=== PATIENT | female | born 1995 | race Caucasian/White ===

== ENCOUNTER 2016-03-07 17:30 | Emergency (ER) | payer OTHER ==
[2016-03-07 17:48] VITALS: BMI 39.4
[2016-03-07 18:43] LABS: EOSINOPHIL 1.6 % (0-4.5); MCH 28.1 pg (25.7-33.7); MCHC 32.8 g/dl (32.0-36.0); MEAN CELL VOLUME 85.8 fl (80-96); MEAN PLT VOLUME 9.9 fl (7.5-11.1); NEUTROPHILS 73.1 % (42.8-82.8); PLATELET COUNT 216 K/MM3 (134-434); RDW 15.8 % (11.6-15.6); WHITE BLOOD COUNT 10.6 K/mm3 (4.0-10.0)
[2016-03-07 19:13] LABS: ALBUMIN 3.5 g/dl (3.4-5.0); ANION GAP 9 (8-16); BILIRUBIN,TOTAL 0.1 mg/dL (0.2-1.0); CALCIUM 8.5 mg/dL (8.5-10.1); CO2 25 mmol/L (21-32); CREATININE 0.8 mg/dL (0.55-1.02); GLUCOSE,RANDOM 90 mg/dL (74-106); SGOT/AST 18 U/L (15-37); SGPT/ALT 18 U/L (12-78); TOT PROT 7.4 g/dl (6.4-8.2)
[2016-03-07 19:16] LABS: ALK PHOS 61 U/L (45-117)
[2016-03-07 19:19] LABS: URINE APPEARANCE CLEAR; URINE BILIRUBIN NEGATIVE (NEGATIVE); URINE BLOOD NEGATIVE (NEGATIVE); URINE COLOR STRAW; URINE GLUCOSE (UA) NEGATIVE (NEGATIVE); URINE KETONE NEGATIVE (NEGATIVE); URINE LEUK ESTERASE NEGATIVE (NEGATIVE); URINE NITRITE NEGATIVE (NEGATIVE); URINE PROTEIN NEGATIVE (NEGATIVE); URINE UROBILINOGEN NEGATIVE E.U./dl (0.2-1.0)
--- NOTE | 2016-03-07 19:30 | PDOC ---
History of Present Illness - General History Source: Patient Exam Limitations: No Limitations - History of Present Illness Travel History: No Timing/Duration: reports: intermittent Abdominal Pain Onset Location: reports: suprapubic (right) <Tania Humphrey - Last Filed: 03/07/16 22:22> <Kelly Kelley - Last Filed: 04/28/16 09:02> - General Chief Complaint: Pain Stated Complaint: PELVIC PAIN Time Seen by Provider: 03/07/16 18:33 Past History - Past Medical History Asthma: No Cancer: No Cardiac Disorders: No Diabetes: No HTN: Yes ( induced hypertension) Seizures: No Thyroid Disease: No - Surgical History Abdominal Surgery: Yes - Reproductive History Is Patient Now?: Yes (#): 3 Para: 1 Therapeutic (s) & number: No Spontaneous : 1 - Immunization History Immunization Up to Date: Yes - Psycho/Social/Smoking Cessation Hx Anxiety: No Suicidal Ideation: No Smoking Status: No Smoking History: Never smoked Have you smoked in the past 12 months: No Number of Cigarettes Smoked Daily: 0 Hx Alcohol Use: No Drug/Substance Use Hx: No Substance Use Type: None Hx Substance Use Treatment: No <Tania Humphrey - Last Filed: 03/07/16 22:22> <Kelly Kelley - Last Filed: 04/28/16 09:02> - Past Medical History Allergies/Adverse Reactions: Allergies Allergy/AdvReac Type Severity Reaction Status Date / Time No Known Allergies Allergy Verified 03/07/16 17:45 Home Medications: Ambulatory Orders Lactobacillus Acidophilus [Probiotic] 1 each PO DAILY 04/14/16 Ondansetron HCl [Zofran] 4 mg PO TID PRN #12 tablet 04/14/16 Vit/Iron Fumarate/FA [ Tablet] 1 each PO DAILY 04/14/16 *Physical Exam - Vital Signs Last Vital Signs Temp Pulse Resp BP Pulse Ox 98.4 F 87 18 129/66 100 03/07/16 17:44 03/07/16 17:44 03/07/16 17:44 03/07/16 17:44 03/07/16 17:44 <Tania Humphrey - Last Filed: 03/07/16 22:22> - Vital Signs Last Vital Signs Temp Pulse Resp BP Pulse Ox 98.1 F 74 18 125/63 100 03/07/16 21:05 03/07/16 21:05 03/07/16 21:05 03/07/16 21:05 03/07/16 21:05 <Kelly Kelley - Last Filed: 04/28/16 09:02> ED Treatment Course - LABORATORY CBC & Chemistry Diagram: 03/07/16 18:38 03/07/16 18:38 - ADDITIONAL ORDERS Additional order review: Laboratory Results 03/07/16 03/07/16 19:00 18:38 Sodium 139 Potassium 3.9 Chloride 105 Carbon Dioxide 25 Anion Gap 9 BUN 13 D Creatinine 0.8 Creat Clearance w eGFR > 60 Random Glucose 90 Calcium 8.5 Total Bilirubin 0.1 L D AST 18 D ALT 18 D Alkaline Phosphatase 61 D Total Protein 7.4 Albumin 3.5 D Beta HCG, Quant 540.5 Urine Color Straw Urine Appearance Clear Urine pH 6.0 Ur Specific [place] 1.012 Urine Protein Negative Urine Glucose (UA) Negative Urine Ketones Negative Urine Blood Negative Urine Nitrite Negative Urine Bilirubin Negative Urine Urobilinogen Negative Ur Leukocyte Esterase Negative 03/07/16 18:38 RBC 4.30 MCV 85.8 MCHC 32.8 RDW 15.8 H MPV 9.9 Neutrophils % 73.1 Lymphocytes % 17.0 D Monocytes % 6.3 Eosinophils % 1.6 Basophils % 2.0 - RADIOLOGY Radiograph Interpretation: 03/07/16 22:11 Patient Name: Kanchan Melissa THIS IS A PRELIMINARY REPORT FROM [facility] HELPER EXAM: Ultrasound pelvis transabdominal and transvaginal with duplex IMAGES: 46 EXAM DATE AND TIME: 2016-03-07 19:41:19.0 REASON FOR EXAM: with left suprapubic pain. Rule out torsion. Beta hCG 540.5 COMPARISON: None. FINDINGS: The uterus is normal in size and echogenicity There are 2 possible early intrauterine gestational sacs with no poles or yolk sac is visualized. Approximate age of 5 weeks and 4 weeks, 5 days by mean sac diameters of 0.44 and 0.21 cm respectively Correlation with serial beta-hCG and followup ultrasound suggested There is a small cyst in the right ovary measuring 1.9 cm, possibly a corpus luteum cyst Normal appearance of the left ovary containing a few small follicles. Flow is demonstrated to both ovaries on Doppler evaluation No adnexal masses visualized No free fluid THIS DOCUMENT HAS BEEN ELECTRONICALLY SIGNED Osei Dejesus MD 03/07/2016 21:34 EST <KamTania - Last Filed: 03/07/16 22:22> - LABORATORY CBC & Chemistry Diagram: 03/07/16 18:38 03/07/16 18:38 - ADDITIONAL ORDERS Additional order review: 03/07/16 18:38 RBC 4.30 MCV 85.8 MCHC 32.8 RDW 15.8 H MPV 9.9 Neutrophils % 73.1 Lymphocytes % 17.0 D Monocytes % 6.3 Eosinophils % 1.6 Basophils % 2.0 <Kelly Kelley - Last Filed: 04/28/16 09:02> *DC/Admit/Observation/Transfer - Discharge Dispostion Admit: No <Tania Humphrey - Last Filed: 03/07/16 22:22> - Attestations Physician Attestion: I reviewed the case with the mid-level practitioner and agree with the mid- level practitioner's assessment, diagnosis and disposition. <Kelly Kelley - Last Filed: 04/28/16 09:02> Diagnosis at time of Disposition: Pelvic pain, Threatened - Discharge Dispostion Disposition: HOME - Referrals Referrals: Tamika Lehman MD [Staff Physician] - - Patient Instructions Printed Discharge Instructions: DI for Threatened , DI for Pelvic Pain Additional Instructions: Must follow up with your Process Improvement Engineer or the one listed on your discharge Increase fluids Pelvic rest Return to the ER for severe/persistent/worsening symptoms, fever/vaginal bleed
[2016-03-07 21:06] VITALS: BP 125/63; PULSE 74; TEMP 98.1
== END 2016-03-07 22:46 | disposition home or self-care (01) ==
LOC: JER 17:30
DX: O20.0 Threatened abortion (principal); O34.81 Maternal care for other abnormalities of pelvic organs, first trimester; N83.291 Other ovarian cyst, right side; Z3A.01 Less than 8 weeks gestation of pregnancy
CPT/HCPCS: 36415; 76817-TC; 80053; 81003; 84702; 85025; 86850; 86900; 86901; 99282-25

== ENCOUNTER 2016-04-14 11:13 | Emergency (ER) | payer OTHER ==
[2016-04-14 11:24] VITALS: BMI 42.7
[2016-04-14] MEDS ORDERED: ONDANSETRON 4 MG/2 ML VIAL IVPUSH ONE (12:13)
[2016-04-14] MEDS ORDERED: SODIUM CHLORIDE 1,000 ML IV STA (12:13)
[2016-04-14] MEDS ORDERED: ONDANSETRON 4 MG/2 ML VIAL ONE (12:25)
--- NOTE | 2016-04-14 12:31 | PDOC ---
History of Present Illness - General Chief Complaint: Nausea/Vomiting Stated Complaint: NAUSEA, DIZZINESS, 8 WKS Time Seen by Provider: 04/14/16 11:33 History Source: Patient Exam Limitations: No Limitations - History of Present Illness Travel History: No Initial Comments: 04/14/16 12:04 20-year-old female presents to the ED with complaints of nausea and vomiting since yesterday associated with generalized fatigue and inability to tolerate by mouth. Patient states had symptoms earlier in the but states did return again on Wednesday. Patient states is currently 8 Weeks with twins as confirmed with ultrasound. Patient denies urinary complaints, bowel complaints, fever, chills, chest pain, abdominal pain, or back pain. Patient also denies vaginal discharge or vaginal bleeding. Timing/Duration: reports: intermittent Quality: reports: moderate Activities at Onset: reports: none Aggravating Factors: improves with: None Alleviating Factors: improves with: None Past History - Past Medical History Allergies/Adverse Reactions: Allergies Allergy/AdvReac Type Severity Reaction Status Date / Time No Known Allergies Allergy Verified 04/14/16 11:20 Home Medications: Ambulatory Orders Lactobacillus Acidophilus [Probiotic] 1 each PO DAILY 04/14/16 Vit/Iron Fumarate/FA [ Tablet] 1 each PO DAILY 04/14/16 Asthma: No Cancer: No Cardiac Disorders: No Diabetes: No HTN: Yes ( induced hypertension) Seizures: No Thyroid Disease: No - Surgical History Abdominal Surgery: Yes - Reproductive History (#): 3 Para: 1 Therapeutic (s) & number: No Spontaneous : 1 - Immunization History Immunization Up to Date: Yes - Psycho/Social/Smoking Cessation Hx Anxiety: No Suicidal Ideation: No Smoking Status: No Smoking History: Never smoked Have you smoked in the past 12 months: No Number of Cigarettes Smoked Daily: 0 Hx Alcohol Use: No Drug/Substance Use Hx: No Substance Use Type: None Hx Substance Use Treatment: No Patient Lives Alone: No Lives with/in: spouse/SO Review of Systems - Review of Systems Able to Perform ROS?: Yes Constitutional: Yes: Symptoms Reported, Weakness HEENTM: No: Symptoms Reported Respiratory: No: Symptoms reported Cardiac (ROS): No: Symptoms Reported ABD/GI: Yes: Nausea, Poor Appetite, Poor Fluid Intake, Vomiting : No: Symptoms Reported Musculoskeletal: No: Symptoms Reported Integumentary: No: Symptoms Reported Neurological: Yes: Weakness (mild generalized) Endocrine: No: Symptoms Reported Hematologic/Lymphatic: No: Symptoms Reported *Physical Exam - Vital Signs Last Vital Signs Temp Pulse Resp BP Pulse Ox 98 F 98 H 17 133/79 98 04/14/16 11:20 04/14/16 11:20 04/14/16 11:20 04/14/16 11:20 04/14/16 11:20 - Physical Exam General Appearance: Yes: Nourished, Appropriately Dressed. No: Apparent Distress HEENT: positive: MANGO, Pharynx Normal (dry). negative: Pale Conjunctivae Neck: positive: Normal Thyroid Respiratory/Chest: positive: Lungs Clear, Normal Breath Sounds. negative: Respiratory Distress, Accessory Muscle Use Cardiovascular: positive: Regular Rhythm, Regular Rate. negative: Murmur Gastrointestinal/Abdominal: positive: Normal Bowel Sounds, Soft. negative: Tenderness Musculoskeletal: negative: CVA Tenderness Extremity: positive: Normal Capillary Refill Integumentary: positive: Normal Color, Warm, Moist Neurologic: positive: Motor Strength 5/5 (ambulatory) ED Treatment Course - LABORATORY CBC & Chemistry Diagram: 04/14/16 12:40 04/14/16 12:40 Medical Decision Making - Medical Decision Making 04/14/16 12:56 8 1 /2 week female with twins presents with nausea and vomiting and generalized fatigue. Patient has no other complaints at this time. Patient concerning for electrolyte imbalance, dehydration, UTI. Patient ordered for labs, urine, antiemetics, IV fluids, and will reevaluate shortly 04/14/16 15:44 Laboratory Tests 04/14/16 04/14/16 04/14/16 12:40 12:40 14:20 WBC 7.1 D Hgb 11.8 Hct 36.0 Neutrophils % 72.9 Sodium 138 Potassium 3.9 Chloride 105 Carbon Dioxide 27 Anion Gap 6 L BUN 10 D Creatinine 0.6 D Random Glucose 88 Calcium 8.6 Magnesium 2.0 Total Bilirubin 0.1 L AST 18 ALT 17 Urine Ketones Negative Urine Nitrite Negative Urine Urobilinogen Negative Ur Leukocyte Esterase Trace H Urine WBC 1 Patient states feeling much better without complaints of nausea requesting to eat. Patient states of a mild headache. Patient will be given crackers and juice and Tylenol. *DC/Admit/Observation/Transfer Diagnosis at time of Disposition: Nausea and vomiting during - Discharge Dispostion Disposition: HOME Condition at time of disposition: Improved - Patient Instructions Printed Discharge Instructions: Nausea of (Alternative Therapy) Additional Instructions: Please take Zofran as needed for nausea. Eat small frequent meals throughout the day and follow-up with her GARNETT MECHANIC as needed. Otherwise return to ED if symptoms return or worsen
[2016-04-14 12:44] LABS: BASOPHIL 0.7 % (0-2.0); EOSINOPHIL 2.3 % (0-4.5); MCH 28.4 pg (25.7-33.7); MCHC 32.8 g/dl (32.0-36.0); MEAN CELL VOLUME 86.7 fl (80-96); MEAN PLT VOLUME 9.7 fl (7.5-11.1); NEUTROPHILS 72.9 % (42.8-82.8); PLATELET COUNT 175 K/MM3 (134-434); RDW 15.7 % (11.6-15.6); WHITE BLOOD COUNT 7.1 K/mm3 (4.0-10.0)
[2016-04-14 13:32] LABS: ANION GAP 6 (8-16); CALCIUM 8.6 mg/dL (8.5-10.1); CO2 27 mmol/L (21-32); CREATININE 0.6 mg/dL (0.55-1.02); GLUCOSE,RANDOM 88 mg/dL (74-106); SGPT/ALT 17 U/L (12-78)
[2016-04-14 13:34] LABS: ALK PHOS 67 U/L (45-117); BILIRUBIN,TOTAL 0.1 mg/dL (0.2-1.0); TOT PROT 6.7 g/dl (6.4-8.2)
[2016-04-14 14:00] LABS: SGOT/AST 18 U/L (15-37)
[2016-04-14 15:00] LABS: URINE APPEARANCE CLOUDY; URINE BILIRUBIN NEGATIVE (NEGATIVE); URINE BLOOD NEGATIVE (NEGATIVE); URINE COLOR LTYELLOW; URINE GLUCOSE (UA) NEGATIVE (NEGATIVE); URINE KETONE NEGATIVE (NEGATIVE); URINE NITRITE NEGATIVE (NEGATIVE); URINE PROTEIN NEGATIVE (NEGATIVE); URINE UROBILINOGEN NEGATIVE E.U./dl (0.2-1.0)
[2016-04-14 15:18] LABS: URINE LEUK ESTERASE TRACE (NEGATIVE)
[2016-04-14 15:20] LABS: URINE MUCUS RARE; URINE RBC 1 /hpf (0-3); URINE WBC 1 /hpf (3-5)
[2016-04-14] MEDS ORDERED: ACETAMINOPHEN 325 MG TABLET (FP) PO ONE (15:43)
[2016-04-14] MEDS ORDERED: ACETAMINOPHEN 325 MG TABLET (FP) ONE (15:56)
[2016-04-14 16:07] VITALS: BP 98/53; PULSE 71; TEMP 98.1
== END 2016-04-14 16:05 | disposition home or self-care (01) ==
LOC: JER 11:13
PROC: 3E033GC Introduction of Other Therapeutic Substance into Peripheral Vein, Percutaneous Approach (ICD-10-PCS; principal; 2016-04-14)
DX: O26.811 Pregnancy related exhaustion and fatigue, first trimester (principal); O13.1 Gestational [pregnancy-induced] hypertension without significant proteinuria, first trimester; Z3A.08 8 weeks gestation of pregnancy
CPT/HCPCS: 36415; 80053; 81003; 81015; 83735; 85025; 96374; 99283-25

== ENCOUNTER 2016-05-22 18:00 | Emergency (ER) | payer OTHER ==
[2016-05-22 18:23] VITALS: BP 107/67; PULSE 79; TEMP 98.2; BMI 42.5
[2016-05-22 20:00] LABS: BASOPHIL 0.3 % (0-2.0); EOSINOPHIL 1.3 % (0-4.5); MCHC 33.1 g/dl (32.0-36.0); MEAN CELL VOLUME 87.4 fl (80-96); MEAN PLT VOLUME 10.1 fl (7.5-11.1); NEUTROPHILS 75.1 % (42.8-82.8); PLATELET COUNT 190 K/MM3 (134-434); RDW 14.5 % (11.6-15.6); WHITE BLOOD COUNT 12.2 K/mm3 (4.0-10.0)
[2016-05-22 20:03] LABS: URINE APPEARANCE CLEAR; URINE BILIRUBIN NEGATIVE (NEGATIVE); URINE BLOOD NEGATIVE (NEGATIVE); URINE COLOR LTYELLOW; URINE GLUCOSE (UA) NEGATIVE (NEGATIVE); URINE KETONE TRACE (NEGATIVE); URINE NITRITE NEGATIVE (NEGATIVE); URINE PROTEIN NEGATIVE (NEGATIVE); URINE UROBILINOGEN NEGATIVE E.U./dl (0.2-1.0)
[2016-05-22 20:11] LABS: URINE LEUK ESTERASE TRACE (NEGATIVE)
[2016-05-22 20:18] LABS: URINE MUCUS RARE; URINE RBC <1 /hpf (0-3); URINE WBC 1 /hpf (3-5)
[2016-05-22 20:24] LABS: ALK PHOS 87 U/L (45-117); ANION GAP 11 (8-16); BILIRUBIN,TOTAL 0.2 mg/dL (0.2-1.0); CALCIUM 8.7 mg/dL (8.5-10.1); CO2 23 mmol/L (21-32); COCKROFT - GAULT 263.3895; CREATININE 0.6 mg/dL (0.55-1.02); GLUCOSE,RANDOM 79 mg/dL (74-106); SGOT/AST 20 U/L (15-37); SGPT/ALT 25 U/L (12-78)
--- NOTE | 2016-05-22 21:29 | PDOC ---
History of Present Illness - General Chief Complaint: Pain, Acute Stated Complaint: 17WKS/ABD PAIN Time Seen by Provider: 05/22/16 19:27 History Source: Patient Exam Limitations: No Limitations - History of Present Illness Travel History: No Initial Comments: 05/22/16 21:26 20yo Female patient 17 weeks presents to ED c/o abd pain which began today. Patient states she has not felt baby move today and usually feels baby move everyday. Associated nausea. Denies vaginal bleeding, back pain, fever, dysuria, hematuria, rectal bleeding, CP, Diff breathing, or any other complaints at this time. Past History - Travel Traveled outside of the country in the last 30 days: No Close contact w/someone who was outside of country & ill: No - Past Medical History Allergies/Adverse Reactions: Allergies Allergy/AdvReac Type Severity Reaction Status Date / Time No Known Allergies Allergy Verified 05/22/16 18:19 Home Medications: Ambulatory Orders Lactobacillus Acidophilus [Probiotic] 1 each PO DAILY 04/14/16 Ondansetron HCl [Zofran] 4 mg PO TID PRN #12 tablet 04/14/16 Vit/Iron Fumarate/FA [ Tablet] 1 each PO DAILY 04/14/16 Asthma: No Cancer: No Cardiac Disorders: No Diabetes: No HTN: Yes ( induced hypertension) Seizures: No Thyroid Disease: No - Surgical History Abdominal Surgery: Yes - Reproductive History (#): 3 Para: 1 Therapeutic (s) & number: No Spontaneous : 1 - Immunization History Immunization Up to Date: Yes - Psycho/Social/Smoking Cessation Hx Anxiety: No Suicidal Ideation: No Smoking Status: No Smoking History: Never smoked Have you smoked in the past 12 months: No Number of Cigarettes Smoked Daily: 0 Hx Alcohol Use: No Drug/Substance Use Hx: No Substance Use Type: None Hx Substance Use Treatment: No Abd/GI Specific PMHX - Complaint Specific PMHX Colitis: No Diverticulitis: No Gall Bladder Disease: No GERD: No Hepatitis: No Irritable Bowel Synd (IBS): No Pancreatitis: No GI Ulcer Disease: No Review of Systems - Review of Systems Able to Perform ROS?: Yes Is the patient limited Ugandan proficient: No Constitutional: No: Chills, Fever, Weakness HEENTM: No: Blurred Vision, Double Vision, Nose Congestion, Nose Bleeding Respiratory: No: Cough, Shortness of Breath, Stridor, Wheezing, Productive cough Cardiac (ROS): No: Chest Pain, Lightheadedness, Palpitations, Syncope, Chest Tightness ABD/GI: Yes: Abdominal Distended (17 weeks preg), Nausea. No: Constipated, Diarrhea, Poor Appetite, Poor Fluid Intake, Rectal Bleeding, Vomiting, Abdominal cramping : No: Burning, Dysuria, Flank Pain, Hematuria, Urgency Musculoskeletal: No: Back Pain Integumentary: No: Bruising, Erythema, Sweating Neurological: No: Headache, Numbness, Paresthesia, Seizure, Tingling, Tremors, Weakness, Unsteady Gait, Ataxia, Dizziness All Other Systems: Reviewed and Negative *Physical Exam - Vital Signs Last Vital Signs Temp Pulse Resp BP Pulse Ox 98.2 F 79 19 107/67 98 05/22/16 18:19 05/22/16 18:19 05/22/16 18:19 05/22/16 18:19 05/22/16 18:19 ED Treatment Course - LABORATORY CBC & Chemistry Diagram: 05/22/16 19:43 05/22/16 19:43 - ADDITIONAL ORDERS Additional order review: Laboratory Results 05/22/16 05/22/16 19:43 19:43 Sodium 136 Potassium 4.1 Chloride 102 Carbon Dioxide 23 Anion Gap 11 BUN 8 Creatinine 0.6 Creat Clearance w eGFR > 60 Random Glucose 79 Calcium 8.7 Total Bilirubin 0.2 D AST 20 ALT 25 D Alkaline Phosphatase 87 D Total Protein 7.0 Albumin 3.0 L Beta HCG, Quant 55132.0 Urine Color [place] Urine Appearance Clear Urine pH 5.0 D Ur Specific [place] 1.017 Urine Protein Negative Urine Glucose (UA) Negative Urine Ketones Trace H Urine Blood Negative Urine Nitrite Negative Urine Bilirubin Negative Urine Urobilinogen Negative Ur Leukocyte Esterase Trace H Urine RBC <1 Urine WBC 1 Ur Epithelial Cells Rare Urine Mucus Rare 05/22/16 19:43 RBC 4.18 MCV 87.4 MCHC 33.1 RDW 14.5 MPV 10.1 Neutrophils % 75.1 Lymphocytes % 16.6 Monocytes % 6.7 Eosinophils % 1.3 Basophils % 0.3 - RADIOLOGY Radiology Studies Ordered: Category Date Time Status US(SINGLE) [US] Stat Ultrasound 05/22/16 19:42 Completed *DC/Admit/Observation/Transfer Diagnosis at time of Disposition: Abdominal pain during Qualifiers: Trimester: second trimester Qualified Code(s): O26.892 - Other specified related conditions, second trimester; R10.9 - Unspecified abdominal pain - Discharge Dispostion Disposition: HOME Condition at time of disposition: Stable Admit: No - Patient Instructions Printed Discharge Instructions: DI for Vaginal Bleeding During , DI for -- Discomforts and Remedies Additional Instructions: FOLLOW UP WITH DR. YIP THIS WEEK. CALL TO SCHEDULE APPOINTMENT. RETURN IF SYMPTOMS WORSEN OR ANY CONCERNS FOR FURTHER EVALUATION.
== END 2016-05-22 22:50 | disposition home or self-care (01) ==
LOC: JER 18:00
DX: O26.892 Other specified pregnancy related conditions, second trimester (principal); R10.9 Unspecified abdominal pain; O13.2 Gestational [pregnancy-induced] hypertension without significant proteinuria, second trimester; Z3A.17 17 weeks gestation of pregnancy
CPT/HCPCS: 36415; 76801-TC; 80053; 81003; 81015; 84702; 85025; 99282-25

== ENCOUNTER 2016-09-04 11:41 | Emergency (ER) | payer OTHER ==
[2016-09-04 11:48] VITALS: BMI 45.3
--- NOTE | 2016-09-04 12:45 | PDOC ---
History of Present Illness - General Chief Complaint: Sore Throat Stated Complaint: cough, sore throat 30weeks Time Seen by Provider: 09/04/16 12:24 History Source: Patient Exam Limitations: No Limitations - History of Present Illness Initial Comments: 09/04/16 12:58 Patient came to emergency department concerned about fever, MAXIMUM TEMPERATURE last night 102.2. States feels is coming from her sore throat with an infrequent cough without phlegm. Denies ear pain, has taken Tylenol with some relief of his symptoms. 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 Is 30 weeks with an uncomplicated thus far Timing/Duration: unsure, 24 hours Severity: moderate Associated Symptoms: reports: cough, fever/chills, headaches, malaise Past History - Travel Traveled outside of the country in the last 30 days: No Close contact w/someone who was outside of country & ill: No - Past Medical History Allergies/Adverse Reactions: Allergies Allergy/AdvReac Type Severity Reaction Status Date / Time No Known Allergies Allergy Verified 09/04/16 11:48 Home Medications: Ambulatory Orders Lactobacillus Acidophilus [Probiotic] 1 each PO DAILY 04/14/16 Ondansetron HCl [Zofran] 4 mg PO TID PRN #12 tablet 04/14/16 Vit/Iron Fumarate/FA [ Tablet] 1 each PO DAILY 04/14/16 Asthma: No Cancer: No Cardiac Disorders: No Diabetes: No HTN: Yes ( induced hypertension) Seizures: No Thyroid Disease: No - Surgical History Abdominal Surgery: Yes - Reproductive History (#): 3 Para: 1 Therapeutic (s) & number: No Spontaneous : 1 - Immunization History Immunization Up to Date: Yes - Psycho/Social/Smoking Cessation Hx Anxiety: No Suicidal Ideation: No Smoking Status: No Smoking History: Never smoked Have you smoked in the past 12 months: No Number of Cigarettes Smoked Daily: 0 Information on smoking cessation initiated: No Hx Alcohol Use: No Drug/Substance Use Hx: No Substance Use Type: None Hx Substance Use Treatment: No Review of Systems - Review of Systems Able to Perform ROS?: Yes Is the patient limited Barbadian proficient: Yes Constitutional: Yes: Symptoms Reported, See HPI, Fever (102 last pm), Malaise HEENTM: Yes: Symptoms Reported, See HPI, Throat Pain, Throat Swelling, Difficulty Swallowing Respiratory: Yes: Symptoms reported, See HPI, Cough. No: Productive cough ABD/GI: Yes: Symptoms Reported Musculoskeletal: Yes: Symptoms Reported, Muscle Pain, Muscle Weakness Neurological: Yes: Symptoms reported, See HPI, Headache All Other Systems: Reviewed and Negative *Physical Exam - Vital Signs Last Vital Signs Temp Pulse Resp BP Pulse Ox 97.6 F 100 H 19 114/66 100 09/04/16 11:45 09/04/16 11:45 09/04/16 11:45 09/04/16 11:45 09/04/16 11:45 - Physical Exam General Appearance: Yes: Nourished, Appropriately Dressed, Apparent Distress HEENT: positive: MANGO, Normal ENT Inspection, TMs Normal, Pharynx Normal (mild erythema, but no exudate, swelling or drainage noted), Rhinorrhea. negative: Sinus Tenderness Neck: positive: Supple. negative: Tender, Lymphadenopathy (R), Lymphadenopathy (L) Respiratory/Chest: positive: Lungs Clear, Normal Breath Sounds. negative: Wheezing Cardiovascular: positive: Regular Rhythm Gastrointestinal/Abdominal: positive: Normal Bowel Sounds, Soft. negative: Tender Extremity: positive: Normal Capillary Refill, Normal Inspection Integumentary: positive: Normal Color, Dry, Warm Neurologic: positive: custodial maintenance worker II-XII NML intact, Fully Oriented, Alert, Normal Mood/ Affect, Normal Response, Motor Strength 5/5 Medical Decision Making - Medical Decision Making 09/04/16 13:37 Rapid strep test negative, we'll treat conservatively for upper respiratory infection. Upon discharge patient notified that with discussion to yesterday with Dr. Ribeiro he recommended her going to L&D for some pedal monitoring due to some lessened activity of the fetus and mild abdominal cramping yesterday. L& D was notified, patient is stable and vital signs are normal. Discharge from ER and we'll send to labor and delivery for monitoring *DC/Admit/Observation/Transfer Diagnosis at time of Disposition: URI, acute - Discharge Dispostion Disposition: HOME Condition at time of disposition: Stable Admit: No - Patient Instructions Printed Discharge Instructions: DI for Viral Upper Respiratory Infection -- Adult Additional Instructions: Rest, drink lots of fluids: Teas, water, soups, Pedialyte Saltwater gargles Steamy showers/seem to face break up mucus Avoid contact with others until fevers and cough resolved Lots of handwashing and good hygiene Continue [id number] medications for symptomatic relief Tylenol for fever and pain Followup with private physician in one to 2 days as needed Return to emergency department for worsened symptoms, fevers, dehydration - Post Discharge Activity Work/School Note: Back to Work
[2016-09-04 14:55] VITALS: BP 106/56; PULSE 82; TEMP 97.7
== END 2016-09-04 13:39 | disposition home or self-care (01) ==
LOC: JERFT 11:41
DX: J11.1 Influenza due to unidentified influenza virus with other respiratory manifestations (principal)
CPT/HCPCS: 87070; 87430; 99281-25

== ENCOUNTER 2016-10-27 09:00 | Inpatient (IN) | payer OTHER ==
[2016-10-31 08:24] VITALS: BMI 46.4
[2016-10-31] MEDS: ELECTROLYTE-148 SOLN 1,000 ML IV SCH (08:30)
[2016-10-31] MEDS ORDERED: ELECTROLYTE-148 SOLN 1,000 ML IV ONE (08:45)
[2016-10-31] MEDS ORDERED: CITRIC ACID/SODIUM CITRATE 30 ML UNIT-DOSE CUP PO ONE (09:00)
[2016-10-31] MEDS ORDERED: ONDANSETRON 4 MG/2 ML VIAL IVPUSH PRN (09:02)
--- NOTE | 2016-10-31 10:19 | HP ---
Past Medical History - Primary Care Physician PCP:: Harman Henderson - Admission Chief Complaint: 38.2 weeks, labor, previous c/s , request of c/s History of Present Illness: 21 yo f 39,5 weeks by date, 38.2 weeks by sono c/o contraction since last night, no rom, no bleeding , had planned c/s for next week, cx 1 cm, 70 vx -4 mi, fhr cat 1, contraction q 3 min History Source: Patient Limitations to Obtaining History: No Limitations - Past Medical History ...: 3 ...Para: 1 ...Term: 0 ...: 1 ...Spon : 1 ...Induced : 0 ...LMP: 01/27/15 ... Weeks Gestation by Dates: 39.5 ...EDC by Dates: 11/03/16 ...EDC by Sono: 11/12/16 Additional OB History: obesity - Past Surgical History Hx Myomectomy: No Hx Transabdominal Cerclage: No - Smoking History Smoking history: Never smoked Have you smoked in the past 12 months: No Aproximately how many cigarettes per day: 0 - Alcohol/Substance Use Hx Alcohol Use: No - Social History Usual Living Arrangement: Yes: With Spouse History of Recent Travel: No Home Medications - Allergies Allergies/Adverse Reactions: Allergies Allergy/AdvReac Type Severity Reaction Status Date / Time No Known Allergies Allergy Verified 10/31/16 07:51 - Home Medications Home Medications: Ambulatory Orders Vit/Iron Fumarate/FA [ Tablet] 1 each PO DAILY 04/14/16 Review of Systems - Review of Systems Constitutional: reports: No Symptoms Eyes: reports: No Symptoms HENT: reports: No Symptoms Neck: reports: No Symptoms Cardiovascular: reports: No Symptoms Respiratory: reports: No Symptoms Gastrointestinal: reports: No Symptoms Genitourinary: reports: No Symptoms Breasts: reports: No Symptoms Reported Integumentary: reports: No Symptoms Neurological: reports: No Symptoms Endocrine: reports: No Symptoms Hematology/Lymphatic: reports: No Symptoms Psychiatric: reports: No Symptoms Physical Exam - Maternity Vital Signs: Vital Signs Temperature 97.7 F 10/31/16 07:30 Pulse Rate 97 H 10/31/16 07:30 Respiratory Rate 18 10/31/16 07:30 Blood Pressure 116/68 10/31/16 07:30 O2 Sat by Pulse Oximetry (%) Constitutional: Yes: Well Nourished, No Distress, Calm, Obese Eyes: Yes: WNL, Conjunctiva Clear, EOM Intact HENT: Yes: WNL, Atraumatic, Normocephalic Neck: Yes: WNL, Supple, Trachea Midline Cardiovascular: Yes: WNL, Regular Rate and Rhythm Breast(s): Yes: WNL - Abdominal Exam/OB Fundal Height: 40 Number of Fetuses: Single Presentation: Vertex Contractions: Yes Regularity: Regular Intensity: Mod/Strong Monitor Mode: External Heart Rate Location: [facility] Category: I Accelerations: Uniform Decelerations: None - Vaginal Exam/OB Vaginal Bleediing: No Speculum Exam: No Dilatation (cm): 1 Effacement (%): 70 Amniotic Membrane Status: Intact Presentation: Vertex/Position Station: -4 - Physical Exam Edema: Yes Edema: LLE: Trace, RLE: Trace Deep Tendon Reflex Grade: Normal +2 ...Motor Strength: WNL Psychiatric: Yes: WNL Hemorrhage Risk Assessment - Risk Factors Medium Risk Factors: Yes: None High Risk Factors: Yes: None Risk Score: 1 Risk Level: Medium Risk Problem List - Problems (1) with 38 completed weeks gestation Code(s): Z3A.38 - 38 WEEKS GESTATION OF (2) Labor established Code(s): OWQ4310 - (3) Previous section Code(s): Z98.891 - HISTORY OF UTERINE SCAR FROM PREVIOUS SURGERY Assessment/Plan previous c/s ,labor, rba discussed , declined , requesting c/s, risks explained
[2016-10-31] MEDS ORDERED: WITCH HAZEL 50% (TUCKS) 40 PAD/JAR PAD TP PRN (11:25)
[2016-10-31] MEDS ORDERED: BENZOCAINE 20% 57 GM BOTTLE TP PRN (11:25)
[2016-10-31] MEDS ORDERED: IBUPROFEN 800 MG/8 ML IJ IVPB PRN (11:25)
[2016-10-31] MEDS ORDERED: BENZOCAINE 28 GM HEMORRHOIDAL OINTMENT PR PRN (11:25)
[2016-10-31] MEDS ORDERED: METHYLERGONOVINE MALEATE 0.2 MG/1 ML AMP IM PRN (11:25)
[2016-10-31] MEDS ORDERED: diphenhydrAMINE HCL 25 MG CAPSULE (FP) PO PRN (11:25)
[2016-10-31] MEDS ORDERED: oxyCODONE HCL 5 MG TABLET PO PRN ×2 (11:25)
[2016-10-31] MEDS ORDERED: DEXTROSE 5%-LACTATED RINGERS 1,000 ML IV SCH (11:30)
[2016-10-31] MEDS ORDERED: OXYTOCIN 20 UNITS in 0.9% NS 1,000 ML IV SCH (11:30)
[2016-10-31] MEDS: IBUPROFEN 800 MG/8 ML IJ IVPB PRN ×2 (12:00→22:53)
[2016-10-31] MEDS ORDERED: ACETAMINOPHEN 1000 MG/100 ML VIAL (NON FORMULARY) IVPB PRN (13:23)
[2016-10-31] MEDS: CEFAZOLIN 1 GM/D5W 50 ML IVPB SCH (17:52)
[2016-11-01] MEDS: CEFAZOLIN 1 GM/D5W 50 ML IVPB SCH (01:47)
[2016-11-01] MEDS: IBUPROFEN 800 MG/8 ML IJ IVPB PRN (06:53)
[2016-11-01 07:36] LABS: BASOPHIL 0.5 % (0-2.0); EOSINOPHIL 1.8 % (0-4.5); MCH 28.8 pg (25.7-33.7); MCHC 33.1 g/dl (32.0-36.0); MEAN CELL VOLUME 87.1 fl (80-96); MEAN PLT VOLUME 10.3 fl (7.5-11.1); NEUTROPHILS 72.9 % (42.8-82.8); PLATELET COUNT 164 K/MM3 (134-434); RDW 14.7 % (11.6-15.6); WHITE BLOOD COUNT 9.8 K/mm3 (4.0-10.0)
[2016-11-01] MEDS ORDERED: DIPHTH,PERTUSS(ACELL),TET 0.5 ML DISP.SYRIN IM ONE (10:00)
--- NOTE | 2016-11-01 10:24 | PN ---
Progress Note (short form) - Note Progress Note: Anesthesia post op note. POD#1 . S/P , under spinal with duramorph. Patient seen and examined. VSS no complaints. No apparent post anesthesia complications. Signed off.
[2016-11-01] MEDS: ENOXAPARIN NA (PORCINE) 40 MG/0.4 ML DISP.SYRIN SQ SCH ×2 (10:40→21:51)
[2016-11-01] MEDS ORDERED: BISACODYL 10 MG SUPP.RECT RC PRN (11:25)
[2016-11-01] MEDS: IBUPROFEN 600 MG TABLET (FP) PO PRN ×2 (13:03→20:45)
[2016-11-01] MEDS: SIMETHICONE 80 MG TAB.CHEW (FP) PO PRN ×2 (13:04→20:44)
[2016-11-01] MEDS: ACETAMINOPHEN 325 MG TABLET (FP) PO PRN ×2 (13:04→20:45)
--- NOTE | 2016-11-01 14:08 | PN ---
Progress Note (short form) - Note Progress Note: pod 1.s/p c/s doing well, ambulating CBC, BMP 11/01/16 06:10 Last Vital Signs Temp Pulse Resp BP Pulse Ox 98.2 F 77 20 120/67 100 11/01/16 03:08 11/01/16 03:08 11/01/16 06:00 11/01/16 03:08 10/31/16 11:35 abdomen soft, no distension , no cva incision , dry clean , no calf tenderness plan ambulate, advance diet Problem List - Problems (1) with 38 completed weeks gestation Code(s): Z3A.38 - 38 WEEKS GESTATION OF (2) Labor established Code(s): FVM2432 - (3) Previous section Code(s): Z98.891 - HISTORY OF UTERINE SCAR FROM PREVIOUS SURGERY
--- NOTE | 2016-11-01 18:53 | OP ---
DATE OF OPERATION: 10/31/2016 PREOPERATIVE DIAGNOSES: , 38 weeks; labor; previous section, requests a repeat section. POSTOPERATIVE DIAGNOSIS: , 38 weeks; labor; previous section, requests a repeat section. PROCEDURE: Repeat low-segment transverse section. SURGEON: Harman Henderson MD TOP EXECUTIVE: JUANITA Vasquez ANESTHESIA: Spinal. ANESTHESIOLOGIST: Andrea Preston MD ESTIMATED BLOOD LOSS: 500 mL. OPERATION: Patient was taken to the operating room under adequate spinal anesthesia. Abdomen and perineum were prepped and draped. Pfannenstiel abdominal skin incision was made. Abdominal wall was cut layer by layer until peritoneum was exposed and incised. Upon entering the abdominal cavity, lower uterine segment was identified and uterovesical fold of peritoneum established and bladder was pushed down. Then with the lower blade of the [place] retractor in the pelvis, a low transverse uterine incision was made, incision extended laterally. Amniotic sac was entered, clear fluid. Head delivered. Nasopharynx was suctioned. Cord around the neck x1, reduced. Live baby was delivered without any difficulty. Placenta was delivered manually. Uterine cavity was cleaned of all remaining tissue. Uterine incision was closed in 2 layers, 1st layer with 0 Biosyn continuous suture, the 2nd layer with 0 Biosyn imbricating the 1st layer. Bladder flap was closed with 0 Biosyn continuous suture. Both tubes and ovaries were checked, were normal, no active bleeding was seen. All the lap pad, sponge count, and instrument count were correct. Then peritoneum was closed with 0 Biosyn continuous suture. Muscles were brought together with interrupted suture of 0 Biosyn. Fascia was closed with 0 Biosyn continuous suture, subcutaneous fat with interrupted suture of 0 Biosyn, and skin was closed with dillon. Patient tolerated procedure well, left the OR in good condition. Daniela [id number]
[2016-11-02] MEDS: IBUPROFEN 600 MG TABLET (FP) PO PRN ×5 (01:26→22:54)
[2016-11-02] MEDS: ACETAMINOPHEN 325 MG TABLET (FP) PO PRN ×5 (01:26→22:53)
[2016-11-02] MEDS: SIMETHICONE 80 MG TAB.CHEW (FP) PO PRN ×3 (01:26→22:53)
--- NOTE | 2016-11-02 08:43 | PN ---
Progress Note (short form) - Note Progress Note: pod 2 doing well ambulating, tolorating diet well. CBC, BMP 11/01/16 06:10 Last Vital Signs Temp Pulse Resp BP Pulse Ox 97.6 F 78 20 129/72 100 11/01/16 22:01 11/01/16 22:01 11/01/16 22:01 11/01/16 22:01 10/31/16 11:35 abdomen soft, no distension, no cva incision healing well, no discharge no calf tenderness plan ambulate, cbc in am plan for d/c home in am Problem List - Problems (1) with 38 completed weeks gestation Code(s): Z3A.38 - 38 WEEKS GESTATION OF (2) Labor established Code(s): VJX0429 - (3) Previous section Code(s): Z98.891 - HISTORY OF UTERINE SCAR FROM PREVIOUS SURGERY
[2016-11-02] MEDS: ENOXAPARIN NA (PORCINE) 40 MG/0.4 ML DISP.SYRIN SQ SCH ×2 (10:00→22:23)
[2016-11-02] MEDS: ELECTROLYTE-148 SOLN 1,000 ML IV SCH (11:25)
[2016-11-02] MEDS ORDERED: DIPHTH,PERTUSS(ACELL),TET 0.5 ML DISP.SYRIN IM ONE (12:00)
[2016-11-02] MEDS ORDERED: SENNOSIDES/DOCUSATE COMBO (SENNA PLUS) TABLET (UD) PO PRN (22:00)
[2016-11-03] MEDS: IBUPROFEN 600 MG TABLET (FP) PO PRN ×2 (04:08→12:27)
[2016-11-03] MEDS: SIMETHICONE 80 MG TAB.CHEW (FP) PO PRN (04:09)
[2016-11-03] MEDS: ACETAMINOPHEN 325 MG TABLET (FP) PO PRN (04:09)
[2016-11-03 08:48] LABS: BASOPHIL 0.4 % (0-2.0); EOSINOPHIL 3.4 % (0-4.5); MCH 28.1 pg (25.7-33.7); MCHC 32.2 g/dl (32.0-36.0); MEAN CELL VOLUME 87.4 fl (80-96); MEAN PLT VOLUME 10.5 fl (7.5-11.1); NEUTROPHILS 64.8 % (42.8-82.8); PLATELET COUNT 185 K/MM3 (134-434); RDW 14.7 % (11.6-15.6); WHITE BLOOD COUNT 7.5 K/mm3 (4.0-10.0)
[2016-11-03] MEDS: ENOXAPARIN NA (PORCINE) 40 MG/0.4 ML DISP.SYRIN SQ SCH (11:05)
--- NOTE | 2016-11-03 11:06 | DS ---
Physical Exam-SWITCHBOARD OPERATOR RECEPTIONIST Vital Signs: Vital Signs Temperature 98.7 F 11/02/16 22:00 Pulse Rate 63 11/02/16 22:00 Respiratory Rate 18 11/02/16 22:00 Blood Pressure 104/66 11/02/16 22:00 O2 Sat by Pulse Oximetry (%) 100 10/31/16 11:35 Constitutional: Yes: Well Nourished, No Distress, Calm Eyes: Yes: WNL, Conjunctiva Clear, EOM Intact HENT: Yes: WNL, Atraumatic, Normocephalic Neck: Yes: WNL, Supple, Trachea Midline Cardiovascular: Yes: WNL, Regular Rate and Rhythm Respiratory: Yes: WNL, Regular, CTA Bilaterally Gastrointestinal: Yes: WNL ...Rectal Exam: Yes: WNL Renal/: Yes: WNL ....Post : Yes: Uterus firm, Uterus non-tender, Slight lochia rubra Breast(s): Yes: WNL Musculoskeletal: Yes: WNL Extremities: Yes: WNL Edema: Yes Edema: LLE: Trace, RLE: Trace Integumentary: Yes: WNL Wound/Incision: Yes: Clean/Dry, Well Approximated, Vidya Intact Neurological: Yes: WNL, Alert, Oriented ...Motor Strength: WNL Psychiatric: Yes: WNL, Alert, Oriented Labs: CBC, BMP 11/03/16 08:00 Delivery - Delivery Section: Repeat, Low Flap Transverse (no complication) Type of Anesthesia: Spinal Episiotomy/Laceration: None EBL (cc): 500 Delivery, Single - Stages of Labor Date of Delivery: 10/31/16 Time of Delivery: 09:38 Time Placenta Delivered: 09:39 Placenta: Yes: Expressed - 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[employer] Present: Yes Name: Joe Little Infant Gender: Male Weight: 7 lb 5 oz Position: Right, OT Total Hours ROM (Hrs/Mins): 0/2 - 1 Minute Total Score: 9 5 Minutes Total Score: 9 - Delancey Feeding Plan Initial Plan: Exclusive throughout hospitalization Discharge Summary Reason For Visit: REPEAT Current Active Problems Labor established (Acute) with 38 completed weeks gestation (Acute) Previous section (Acute) Procedures: Principal: repeat LST c/s Condition: Good - Instructions Diet, Activity, Other Instructions: regular diet, follow up [facility] care 1 week, if fever, pain, heavy bleeding call MD Disposition: HOME - Home Medications Comprehensive Discharge Medication List: Ambulatory Orders Vit/Iron Fumarate/FA [ Tablet] 1 each PO DAILY 04/14/16
[2016-11-03 11:43] VITALS: BP 131/75; PULSE 67; TEMP 98
--- NOTE | 2016-11-05 15:49 | PATH ---
Surgical Pathology Report Patient Name: AGUSTIN SUAREZ Med. Rec. #: [id number] /Age/Gender: 1995 (Age: 21) / F Account: [id number] Location: [facility] OBS/PHYSICIAN IN PRIVATE PRACTICE Taken: 10/31/2016 Received: 11/02/2016 Reported: 11/05/2016 Physicians: Harman Henderson M.D. Specimen(s) Received PLACENTA Clinical History , previous at 34 weeks for preeclampsia 2012, miscarriage x1 Final Diagnosis PLACENTA, DELIVERY: FOCALLY DISRUPTED THIRD TRIMESTER PLACENTA WITH THREE VESSEL UMBILICAL CORD AND UNREMARKABLE PLACENTAL MEMBRANES. Electronically Signed Rosalino Gonzalez M.D. Gross Description The specimen is received fresh labeled placenta and is a 618 gram, 21.0 x 15.0 x 2.3 cm. placenta with attached membranes and umbilical cord. The attached membranes are henriquez, thick, cloudy and insert marginally. The umbilical cord measures 30 cm. in length and averages 1.1 cm. in diameter. The cord inserts eccentrically, 4.5 cm. to the nearest margin. No true knots or strictures are identified. Cut surface of the umbilical cord reveals 3 vessels. The surface is taylor-blue with minimal fibrin deposition and appropriate caliber vessels. The maternal surface is red-brown with focal defects. Sectioning reveals red-brown, spongy parenchyma. No lesions are identified. Plant Electrical Engineer sections are submitted in three cassettes as follows: 1- membrane rolls and umbilical cord; 2-3- full thickness sections of placenta. 11/04/2016 [facility]11/04/2016
== END 2016-11-03 15:00 | disposition home or self-care (01) | DRG 540 ==
LOC: JLDR 10-31 07:10 → J3W 10-31 11:45
PROVIDERS: ADMIT Obstetrics & Gynecology; ATTEND Obstetrics & Gynecology
PROC: 10D00Z1 Extraction of Products of Conception, Low, Open Approach (ICD-10-PCS; principal; 2016-10-31)
DX: O34.211 Maternal care for low transverse scar from previous cesarean delivery (principal); Z3A.38 38 weeks gestation of pregnancy; Z37.0 Single live birth
CPT/HCPCS: 36415; 85025; 88307-TC

== ENCOUNTER 2016-11-07 17:01 | Emergency (ER) | payer OTHER ==
[2016-11-07 17:05] VITALS: BP 155/99; PULSE 62; TEMP 98.8; BMI 44.1
--- NOTE | 2016-11-07 18:11 | PDOC ---
History of Present Illness - General Chief Complaint: Wound Stated Complaint: PAIN, ACUTE Time Seen by Provider: 11/07/16 18:00 History Source: Patient Exam Limitations: No Limitations - History of Present Illness Initial Comments: 11/07/16 18:30 Patient is a 21-year-old female, on and 10/31/2016. [place] initially placed was seen at Dr. Henderson's office where part of the wound opened after taking out the dillon. Steri-Strips were placed on however after patient showered she noted that several of the Steri-Strips fell off. Now with open areas to right lateral wound. No active bleeding. Patient reports some blood noted previously. Patient with mild pain has been taking medication as needed as prescribed. Has been breast-feeding. There is no foul odor, no erythema or edema to site. Past Medical History: Denies. Allergies: No known allergies Medications: vitamins Family History: Non-contributory Social History: Denies smoking, alcohol use, or IVDU Review of Systems GENERAL/CONSTITUTIONAL: No fever or chills. No weakness. No weight change. HEAD, EYES, EARS, NOSE AND THROAT: No change in vision. No ear pain or discharge. No sore throat. CARDIOVASCULAR: No chest pain or shortness of breath. RESPIRATORY: No cough, wheezing, or hemoptysis. GASTROINTESTINAL: No nausea, vomiting, diarrhea or constipation. No rectal bleeding. GENITOURINARY: No dysuria, frequency, or change in urination. MUSCULOSKELETAL: No joint or muscle swelling or pain. No neck or back pain. SKIN : 2 superficially opened areas to the right lateral wound each measuring approximately 1 cm in length. NEUROLOGIC: No headache, vertigo, loss of consciousness, or loss of sensation. Physical Exam: GENERAL: The patient is awake, alert, and fully oriented, in no acute distress. LUNGS: Breath sounds equal, clear to auscultation bilaterally. No wheezes, and no crackles. HEART: Regular rate and rhythm, normal S1 and S2 without murmur, rub or gallop. ABDOMEN: Soft, nontender, normoactive bowel sounds. No guarding, no rebound. No masses. No bruising or abrasions SKIN: Warm, Dry, normal turgor, no rashes or lesions noted. 2 superficially opened areas to the right lateral wound each measuring approximately 1 cm in length. No Surrounding induration, no erythema, no edema. No foul odor, no drainage no bleeding. Eschar noted. 11/07/16 18:35 Past History - Past Medical History Allergies/Adverse Reactions: Allergies Allergy/AdvReac Type Severity Reaction Status Date / Time No Known Allergies Allergy Verified 11/07/16 17:05 Home Medications: Ambulatory Orders NK [No Known Home Medication] 11/07/16 Asthma: Yes Cancer: No Cardiac Disorders: No Diabetes: No HTN: No Seizures: No Thyroid Disease: No - Surgical History Abdominal Surgery: Yes - Reproductive History (#): 3 Para: 1 Therapeutic (s) & number: No Spontaneous : 1 - Immunization History Immunization Up to Date: Yes - Suicide/Smoking/Psychosocial Hx Smoking Status: No Smoking History: Never smoked Have you smoked in the past 12 months: No Number of Cigarettes Smoked Daily: 0 Hx Alcohol Use: No Drug/Substance Use Hx: No Substance Use Type: None Hx Substance Use Treatment: No *Physical Exam - Vital Signs Last Vital Signs Temp Pulse Resp BP Pulse Ox 98.8 F 62 20 155/99 99 11/07/16 17:02 11/07/16 17:02 11/07/16 17:02 11/07/16 17:02 11/07/16 17:02 Medical Decision Making - Medical Decision Making 11/07/16 18:33 A/P: Patient here for evaluation of wound dehiscence, Dr. Henderson was aware of the opening had placed Steri-Strips this week which has now fell off. Wounds open superficially with no drainage. Wet-to-dry dressing applied. Dr. Henderson called. Awaiting call back 11/07/16 20:[address] Bowie who is covering clinic for Dr. Henderson she states to apply wet to dry dressings and have her follow-up on Wednesday in office. Patient with no clinical signs of cellulitis will hold off on antibiotics because patient is currently breast-feeding. Patient with elevated BP is aware is under care of M.D. Denies any chest pain, headache, visual disturbance, or any concerns. Will return if any chest pain, shortness of breath, headache, palpitations, redness or swelling to area with evidence of cellulitis including fever. *DC/Admit/Observation/Transfer Diagnosis at time of Disposition: Wound dehiscence, - Discharge Dispostion Disposition: HOME Condition at time of disposition: Good Admit: No - Referrals Referrals: Harman Henderson MD [Staff Physician] - - Patient Instructions Additional Instructions: Change dressing, apply wet to dry dressing daily Please monitor area for any increased redness swelling or signs of infection Recommend follow-up with Dr. Henderson on Wednesday or Wednesday If any redness, swelling, fever, or any other concerns return to ER
== END 2016-11-07 19:11 | disposition home or self-care (01) ==
LOC: JERFT 17:01
DX: O90.0 Disruption of cesarean delivery wound (principal)
CPT/HCPCS: 99281-25

== ENCOUNTER 2016-12-04 17:55 | Emergency (ER) | payer OTHER ==
[2016-12-04 18:01] VITALS: BP 130/92; PULSE 89; TEMP 97.9; BMI 42.3
--- NOTE | 2016-12-04 19:01 | PDOC ---
History of Present Illness - General Chief Complaint: Shortness of Breath Stated Complaint: ANXIETY Time Seen by Provider: 12/04/16 18:19 History Source: Patient Exam Limitations: No Limitations - History of Present Illness Initial Comments: 12/04/16 19:28 Patient is a 21-year-old female, no significant medical history currently on no medication states she's 5 weeks today was at home her boyfriend has been sick she hasn't slept in several days and has been taking care of the baby. Her boyfriend's mother came to the house today and started an argument with her she started to cry and started hyperventilating and started to have cramping in her hands. He then called 911 because she thought she was having a stroke. Upon arrival patient is calm, denies any chest pain or shortness of breath, no neurological deficits, no cramping or pain to hands. Past Medical History: Denies. Allergies: No known allergies Medications: Family History: Non-contributory Social History: Denies smoking, alcohol use, or IVDU Vital signs on arrival are notable for pulse of 89. Review of Systems GENERAL/CONSTITUTIONAL: No fever or chills. No weakness. No weight change. HEAD, EYES, EARS, NOSE AND THROAT: No change in vision. No ear pain or discharge. No sore throat. CARDIOVASCULAR: No chest pain or shortness of breath. RESPIRATORY: No cough, wheezing, or hemoptysis. GASTROINTESTINAL: No nausea, vomiting, diarrhea or constipation. No rectal bleeding. GENITOURINARY: No dysuria, frequency, or change in urination. MUSCULOSKELETAL: No joint or muscle swelling or pain. No neck or back pain. SKIN AND BREASTS: No rash or easy bruising. NEUROLOGIC: No headache, vertigo, loss of consciousness, or loss of sensation. PSYCHIATRIC: Anxious prior to arrival ENDOCRINE: No increased thirst. No abnormal weight change. HEMATOLOGIC/LYMPHATIC: No anemia, easy bleeding, or history of blood clots. ALLERGIC/IMMUNOLOGIC: No hives or skin allergy. No latex allergy. Physical Exam: GENERAL: The patient is awake, alert, and fully oriented, in no acute distress. HEAD: Normal with no signs of trauma. EYES: Pupils equal, round and reactive to light, extraocular movements intact, sclera anicteric, conjunctiva clear. ENT: Ears normal, nares patent, oropharynx clear without exudates. Moist mucous membranes. No uvula deviation NECK: Normal range of motion, supple without lymphadenopathy, JVD, or masses. LUNGS: Breath sounds equal, clear to auscultation bilaterally. No wheezes, and no crackles. HEART: Regular rate and rhythm, normal S1 and S2 without murmur, rub or gallop. ABDOMEN: Soft, nontender, normoactive bowel sounds. No guarding, no rebound. No masses. No bruising or abrasions RECTAL : Guaiac negative, normal rectal tone. MUSCULOSKELETAL: Normal range of motion, no edema. No clubbing or cyanosis. No cords, erythema, or tenderness. No CVA Tenderness with fist. NEUROLOGICAL: Cranial nerves II through XII grossly intact. Normal speech, normal gait. PSYCH: Normal mood, normal affect. SKIN: Warm, Dry, normal turgor, no rashes or lesions noted. Past History - Past Medical History Allergies/Adverse Reactions: Allergies Allergy/AdvReac Type Severity Reaction Status Date / Time No Known Allergies Allergy Verified 12/04/16 17:56 Home Medications: Ambulatory Orders NK [No Known Home Medication] 11/07/16 Asthma: Yes Cancer: No Cardiac Disorders: No Diabetes: No HTN: No Seizures: No Thyroid Disease: No - Surgical History Abdominal Surgery: Yes - Reproductive History (#): 3 Para: 1 Therapeutic (s) & number: No Spontaneous : 1 - Immunization History Immunization Up to Date: Yes - Suicide/Smoking/Psychosocial Hx Smoking Status: No Smoking History: Never smoked Have you smoked in the past 12 months: No Number of Cigarettes Smoked Daily: 0 Hx Alcohol Use: No Drug/Substance Use Hx: No Substance Use Type: None Hx Substance Use Treatment: No *Physical Exam - Vital Signs Last Vital Signs Temp Pulse Resp BP Pulse Ox 97.9 F 89 18 130/92 98 12/04/16 17:57 12/04/16 17:57 12/04/16 17:57 12/04/16 17:57 12/04/16 17:57 Medical Decision Making - Medical Decision Making 12/04/16 19:39 A/P: Patient here for evaluation after having episode of being upset crying and hyperventilating and then having cramping in hands. All symptoms have resolved prior to arrival patient denies any chest pain or shortness of breath. Patient denies fear of hurting self or others. Patient states that her boyfriend has been ill and the mother came over today and started to point out everything she was doing wrong and caused her to become anxious, cry,hyperventilate and then the symptoms started. Once she removed herself from the situation came to emergency department her symptoms resolved. I Able at this time to discharge patient home, her mother is at the bedside and will take her to her house. The baby will be taken care of and will be with grandmother as well. I discussed the physical exam findings and final diagnoses with the patient. I answered all of the patient's questions. The patient was satisfied with the care received and felt comfortable with the discharge plan and treatment plan. The patient will call to arrange follow-up and will return to the Emergency Department with any new, persisting or worsening symptoms. *DC/Admit/Observation/Transfer Diagnosis at time of Disposition: Anxiety - Discharge Dispostion Disposition: HOME Condition at time of disposition: Good Admit: No - Referrals Referrals: Kanchan Pizarro [Primary Care Provider] - - Patient Instructions Additional Instructions: Please refrain from any anxiety producing behaviors, increase fluid and food intake. Chest pain, shortness of breath or any other concerns return to ER - Post Discharge Activity
== END 2016-12-04 19:04 | disposition home or self-care (01) ==
LOC: JERFT 17:55
DX: O99.345 Other mental disorders complicating the puerperium (principal); F41.8 Other specified anxiety disorders
CPT/HCPCS: 99281-25

== ENCOUNTER 2017-03-25 17:46 | Emergency (ER) | payer SELFPAY ==
[2017-03-25] MEDS ORDERED: ACETAMINOPHEN 500 MG TABLET (FP) PO ONE (18:10)
[2017-03-25 18:12] VITALS: BP 136/73; BMI 42.5
--- NOTE | 2017-03-25 18:14 | PDOC ---
Rapid Medical Evaluation Time Seen by Provider: 03/25/17 18:08 Medical Evaluation: Allergies Allergy/AdvReac Type Severity Reaction Status Date / Time No Known Allergies Allergy Verified 12/04/16 17:56 03/25/17 18:10 Pt c/o:cough, fever, headache, hx asthma Pt on brief exam: fever, lcta Pt ordered for: tylenol and influenza swab sent P to proceed to the ED: 03/25/17 18:11 Discharge Disposition - Diagnosis Cough - Referrals - Patient Instructions - Post Discharge Activity
--- NOTE | 2017-03-25 20:29 | PDOC ---
History of Present Illness - General Chief Complaint: Respiratory Stated Complaint: COLD SYMPTOMS Time Seen by Provider: 03/25/17 18:08 History Source: Patient Exam Limitations: No Limitations - History of Present Illness Initial Comments: 03/25/17 20:28 Patient here with complaints of fevers, chills, cough that is nonproductive, generalized body aches x 2 days 03/25/17 22:54 Timing/Duration: reports: constant, getting worse Severity: reports: mild, moderate Associated Symptoms: reports: chest pain/soreness, cough, earache, fever/chills , headache, nasal congestion, nasal drainage, sore throat Past History - Travel Traveled outside of the country in the last 30 days: No Close contact w/someone who was outside of country & ill: No - Past Medical History Allergies/Adverse Reactions: Allergies Allergy/AdvReac Type Severity Reaction Status Date / Time No Known Allergies Allergy Verified 03/25/17 18:12 Home Medications: Ambulatory Orders Ibuprofen [Motrin -] 400 mg PO QID PRN #28 tablet 03/25/17 Oseltamivir Phosphate [Tamiflu -] 75 mg PO BID #10 capsule 03/25/17 Asthma: Yes Cancer: No Cardiac Disorders: No COPD: No Diabetes: No HTN: No Seizures: No Thyroid Disease: No - Surgical History Abdominal Surgery: Yes - Reproductive History (#): 3 Para: 1 Therapeutic (s) & number: No Spontaneous : 1 - Immunization History Immunization Up to Date: Yes - Suicide/Smoking/Psychosocial Hx Smoking Status: No Smoking History: Never smoked Have you smoked in the past 12 months: No Number of Cigarettes Smoked Daily: 0 Hx Alcohol Use: No Drug/Substance Use Hx: No Substance Use Type: None Hx Substance Use Treatment: No Review of Systems - Review of Systems Able to Perform ROS?: Yes Is the patient limited [place] Islander proficient: Yes Constitutional: Yes: Symptoms Reported, See HPI, Chills, Fever, Malaise HEENTM: Yes: Symptoms Reported, See HPI Respiratory: Yes: Symptoms reported, See HPI, Cough, Wheezing ABD/GI: Yes: Symptoms Reported, Nausea. No: Vomiting Integumentary: No: Symptoms Reported Neurological: No: Symptoms reported All Other Systems: Reviewed and Negative *Physical Exam - Vital Signs Last Vital Signs Temp Pulse Resp BP Pulse Ox 102.2 F H 112 H 16 136/73 99 03/25/17 18:09 03/25/17 18:09 03/25/17 18:09 03/25/17 18:09 03/25/17 18:09 - Physical Exam General Appearance: Yes: Nourished, Appropriately Dressed, Apparent Distress, Mild Distress HEENT: positive: MANGO, TMs Normal (congested), Nasal Congestion, Rhinorrhea Neck: positive: Supple, Lymphadenopathy (R), Lymphadenopathy (L) Respiratory/Chest: positive: Lungs Clear (corse but clear). negative: Wheezing Gastrointestinal/Abdominal: positive: Soft. negative: Tender Musculoskeletal: positive: Normal Inspection Extremity: positive: Normal Capillary Refill, Normal Inspection Integumentary: positive: Dry, Warm, Pale Neurologic: positive: sales management intern II-XII NML intact, Fully Oriented, Alert, Normal Mood/ Affect, Normal Response ED Treatment Course - ADDITIONAL ORDERS Additional order review: 03/25/17 18:10 Influenza Types A,B Antigen (FRANCISCA) - Final Nasopharyngeal Swab - Final - Medications Given in the ED: ED Medications Discontinued Medications Generic Name Dose Route Start Last Admin Trade Name Freq PRN Reason Stop Dose Admin Acetaminophen 975 mg 03/25/17 18:10 03/25/17 18:13 Tylenol - PO 03/25/17 18:11 975 mg ONCE ONE Administration Progress Note - Progress Note Progress Note: Influenza A positive, we'll treat with Tamiflu *DC/Admit/Observation/Transfer Diagnosis at time of Disposition: Cough, Influenza A - Discharge Dispostion Disposition: HOME Condition at time of disposition: Stable Admit: No - Prescriptions Prescriptions: Ibuprofen [Motrin -] 400 mg PO QID PRN #28 tablet PRN Reason: Pain Oseltamivir Phosphate [Tamiflu -] 75 mg PO BID #10 capsule - Referrals Referrals: Kanchan Pizarro [Primary Care Provider] - - Patient Instructions Printed Discharge Instructions: DI for Influenza -- Adult Additional Instructions: Rest, drink lots of fluids: Teas, water, soups, Pedialyte Saltwater gargles Steamy showers/seem to face break up mucus Old-fashioned treatments help! Avoid contact with others until fevers and cough resolved as this is very contagious Lots of handwashing and good hygiene Continue [id number] medications for symptomatic relief Tylenol or Motrin for fever and pain Take all of Tamiflu as directed: 1 tab every 12 hours for 5 days Followup with private physician in one to 2 days as needed or if worsening Return to emergency department for worsened symptoms, fevers, dehydration Influenza takes between 5 and 7 days for resolution To not participate in any activity, work, or school until fevers and cough are gone for at least one day - Post Discharge Activity Forms/Work/School Notes: Back to Work
[2017-03-25 20:39] VITALS: PULSE 90; TEMP 99
== END 2017-03-25 20:40 | disposition home or self-care (01) ==
LOC: JERFT 17:46
DX: J09.X2 Influenza due to identified novel influenza A virus with other respiratory manifestations (principal); R05 Cough
CPT/HCPCS: 87804; 99281-25

== ENCOUNTER 2018-04-01 05:01 | Day surgery (SDC) | payer OTHER ==
[2018-03-29 17:40] VITALS: BMI 44.2
[~2018-04-01 05:01] MED LIST: BUPIVACAINE HCL/PF (5 MG/ML) 30 ML VIAL IJ ONE; ceFAZolin SODIUM 1 GM VIAL IVPB ONE
[2018-04-01] MEDS ORDERED: BUPIVACAINE HCL/PF 0.5% (5MG/ML) 10 ML VIAL ONE (07:23)
[2018-04-01] MEDS ORDERED: ALBUTEROL SO4 8 GM HFA INHALER IH ONE (07:57)
[2018-04-01] MEDS ORDERED: LIDOCAINE HCL/PF 2% SDV 5ML VIAL ONE (07:58)
[2018-04-01] MEDS ORDERED: MIDAZOLAM HCL 2 MG/2 ML SINGLE DOSE VIAL ONE (07:58)
[2018-04-01] MEDS ORDERED: PROPOFOL 20 ML ONE ×4 (07:58→10:10)
[2018-04-01] MEDS ORDERED: fentaNYL CITRATE 250 MCG/5 ML VIAL ONE (07:58)
[2018-04-01] MEDS ORDERED: ROCURONIUM BROMIDE 50 MG/5 ML VIAL ONE (07:58)
[2018-04-01] MEDS ORDERED: SEVOFLURANE 250 ML BTL ONE (08:03)
--- NOTE | 2018-04-01 08:44 | HP ---
Admitting History and Physical - Admission Chief Complaint: RUQ pain History of Present Illness: 22 y.o. female with chronic RUQ pain radiating to the back aggravated by fatty meals x > 2 years. US showed cholelithiasis. History Source: Patient Limitations to Obtaining History: No Limitations - Past Medical History Hepatobiliary: Yes: Cholelithiasis ...LMP: 01/28/16 ...LMP Comment: 1month ago - Smoking History Smoking history: Never smoked Have you smoked in the past 12 months: No Aproximately how many cigarettes per day: 0 - Alcohol/Substance Use Hx Alcohol Use: Yes (socially) - Social History History of Recent Travel: No Home Medications - Allergies Allergies/Adverse Reactions: Allergies Allergy/AdvReac Type Severity Reaction Status Date / Time No Known Drug Allergies Allergy Verified 04/01/18 07:06 estrella Allergy "itchy and Verified 04/01/18 07:06 face becomes red,coughing" - Home Medications Home Medications: Ambulatory Orders NK [No Known Home Medication] 03/29/18 Review of Systems - Review of Systems Constitutional: reports: Other (intermittent RUQ pain) Gastrointestinal: reports: Abdominal Pain (RUQ) Physical Examination Vital Signs: Vital Signs Temperature 98.1 F 04/01/18 07:00 Pulse Rate 83 04/01/18 07:00 Respiratory Rate 20 04/01/18 07:00 Blood Pressure 104/49 L 04/01/18 07:00 O2 Sat by Pulse Oximetry (%) 99 04/01/18 06:59 Constitutional: Yes: Obese Eyes: Yes: Conjunctiva Clear HENT: Yes: Normocephalic Neck: Yes: Supple Cardiovascular: Yes: Regular Rate and Rhythm Respiratory: Yes: CTA Bilaterally Gastrointestinal: Yes: Soft, Abdomen, Obese ...Rectal Exam: Yes: Deferred Extremities: Yes: WNL Imaging - Results Ultrasound: Report Reviewed, Image Reviewed Problem List - Problems (1) Chronic cholecystitis with calculus Assessment/Plan: Laparoscopic cholecystectomy on 04/01/18 Risks, benefits, and alternatives to the procedure d/w patient. Code(s): K80.10 - CALCULUS OF GALLBLADDER W CHRONIC CHOLECYST W/O OBSTRUCTION
[2018-04-01] MEDS ORDERED: ceFAZolin SODIUM 1 GM VIAL ONE (08:59)
[2018-04-01] MEDS ORDERED: ceFAZolin SODIUM 1 GM VIAL IVPB ONE (09:03)
[2018-04-01] MEDS ORDERED: BUPIVACAINE HCL/PF (5 MG/ML) 30 ML VIAL IJ ONE ×2 (09:05)
[2018-04-01] MEDS ORDERED: DEXAMETHASONE SOD PHOSPHATE 4 MG/1 ML VIAL ONE (09:11)
[2018-04-01] MEDS ORDERED: NEOSTIGMINE METHYLSULFATE 0.5 MG/ML - 10 ML MDV ONE ×2 (09:11→10:05)
[2018-04-01] MEDS ORDERED: GLYCOPYRROLATE 0.2 MG/1 ML VIAL ONE (09:11)
[2018-04-01] MEDS ORDERED: ONDANSETRON 4 MG/2 ML VIAL IVPUSH PRN (09:51)
[2018-04-01] MEDS ORDERED: oxyCODONE HCL 5 MG TABLET PO PRN (09:51)
[2018-04-01] MEDS ORDERED: KETOROLAC TROMETHAMINE 30 MG/1 ML VIAL ONE (09:56)
[2018-04-01] MEDS ORDERED: LACTATED RINGERS SOLUTION 1,000 ML IV SCH (10:00)
[2018-04-01] MEDS ORDERED: MIDAZOLAM HCL 5 MG/1 ML Single Dose Vial ONE (10:31)
--- NOTE | 2018-04-01 10:44 | OP ---
Operative Note - Note: Operative Date: 04/01/18 Pre-Operative Diagnosis: Chronic cholecystitis Operation: Laparoscopic cholecystectomy Findings: Distended GB with multiple stones Post-Operative Diagnosis: Same as Pre-op Surgeon: Galo Lorenzana Anesthesia: General Specimens Removed: gallbladder Estimated Blood Loss (mls): 5 Operative Report Dictated: Yes
--- NOTE | 2018-04-01 11:07 | OP ---
DATE OF OPERATION: 04/01/2018 PROCEDURE: Laparoscopic cholecystectomy. PREOPERATIVE DIAGNOSIS: Chronic cholecystitis with cholelithiasis. POSTOPERATIVE DIAGNOSIS: Chronic cholecystitis with cholelithiasis. SURGEON: Galo Lorenzana MD ANESTHESIA: General endotracheal. FINDINGS ON PROCEDURE: This is a 22-year-old female who presents with more than 2 years right upper quadrant pain radiating to the back aggravated by fatty meals. Ultrasound of the abdomen revealed a gallbladder with multiple stones and a normal-sized common bile duct. Patient was advised elective cholecystectomy, and consent was obtained after discussing the risks, benefits, and alternatives of the procedure. DESCRIPTION OF PROCEDURE: Patient was brought to the operating room and placed in supine position. General endotracheal anesthesia was administered. The abdomen was prepped and draped in the usual sterile fashion. Using 0.5% Marcaine, local anesthesia was administered to the proposed incision sites. The peritoneal cavity was entered using the Optiview technique, which proved unsuccessful, and was switched to the Veress needle technique. Pneumoperitoneum was established. A 5-mm port was inserted through the 5-mm umbilical incision under direct vision. The patient was then placed in reverse Trendelenburg [id number] position. An 11-mm port was inserted at the subxiphoid region and two 5-mm ports were inserted at the right subcostal region at the midclavicular and anterior axillary lines. The gallbladder fundus was grasped and retracted superiorly, and the infundibulum was grasped and retracted anterolaterally to expose the triangle of Calot. Using the hook dissector connnected to monopolar cautery, the visceral peritoneum covering the triangle was scored medially and laterally towards the gallbladder bed. A window was created between the liver bed and the gallbladder wall to create the critical view of safety. The cystic duct was initially isolated using the peanut dissector and the hook dissector as well as the [place] dissector. Three clips were applied to the cystic artery followed by transection leaving 2 clips at the cystic duct stump. The cystic artery was noted to be more posterior, close to the liver bed. This was isolated using [place] dissector followed by application of 3 clips and transection, leaving 2 clips at the cystic artery stump. Gallbladder was then dissected from its bed in antegrade fashion using the hook dissector. This was then placed in an Endobag and extracted via the subxiphoid incision. The gallbladder was noted to contain multiple small stones, and these were crushed over, grasped with a stone retriever to accommodate the gallbladder through a small subxiphoid incision. The gallbladder bed was inspected and was noted to be free of active bleeding. The small amount of bile and blood in the Morison pouch as well as the right hepatic gutter was irrigated with normal saline until the return was clear. The pneumoperitoneum was evacuated, and the ports were removed. The wound was closed with one simple fascial suture using Polysorb for the fascia of the subxiphoid incision and subcuticular Biosyn 4-0 suture for the skin. The wound closure was reinforced with Dermabond. The patient was successfully extubated and transferred to the post-anesthesia care unit in satisfactory condition. ESTIMATED BLOOD LOSS: About 5 mL. WOUND CLASS: Clean-contaminated. The patient received 1 g of Ancef prior to the start of the procedure. Daniela [id number] MTDD
[2018-04-01 12:17] VITALS: PULSE 96
[2018-04-01] MEDS ORDERED: oxyCODONE HCL 5 MG TABLET ONE (12:23)
[2018-04-01] MEDS ORDERED: ACETAMINOPHEN INJECTION 100 ML IVPB ONE (12:36)
[2018-04-01] MEDS ORDERED: ACETAMINOPHEN 1000 MG/100 ML VIAL (NON FORMULARY) IVPB ONE ×2 (12:46→12:50)
[2018-04-01 14:42] VITALS: BP 129/75; TEMP 98.8
--- NOTE | 2018-04-04 18:16 | PATH ---
Surgical Pathology Report Patient Name: [facility]IN [facility]. Rec. #: [id number] /Age/Gender: 1995 (Age: 22) / F Account: [id number] Location: [facility] Taken: 04/01/2018 Received: 04/01/2018 Reported: 04/04/2018 Physicians: Galo Lorenzana M.D. Specimen(s) Received GALLBLADDER Clinical History Chronic cholecystitis Final Diagnosis GALLBLADDER, LAPAROSCOPIC CHOLECYSTECTOMY: CHRONIC CHOLECYSTITIS WITH CHOLELITHIASIS. Electronically Signed Mariana Fletcher M.D. Gross Description Received in formalin, labeled "gallbladder," is a 8.3 x 2.6 x 1.0 cm. gallbladder with a 0.2 cm. in length portion of cystic duct attached. The outer surface is henriquez-pink with a focal defect and varies from smooth to shaggy. There is no bile and no choleliths present within the lumen. There is green bile and abundant yellow-green, irregular to fragmented choleliths separately received within the same container. The choleliths range from 0.1-1.0 cm in greatest dimension The mucosa is hyperemic. The wall of the gallbladder measures 0.1 cm. in thickness. Sizer Hand sections are submitted in one cassette. 04/01/201804/01/2018
== END 2018-04-01 16:06 | disposition home or self-care (01) ==
LOC: JASU-SURG 05:01
PROVIDERS: ATTEND Surgery
PROC: 0FT44ZZ Resection of Gallbladder, Percutaneous Endoscopic Approach (ICD-10-PCS; principal; 2018-04-01 08:00)
DX: K80.10 Calculus of gallbladder with chronic cholecystitis without obstruction (principal)
CPT/HCPCS: 88304-TC; 94760; J0131

== ENCOUNTER 2018-09-03 17:40 | Emergency (ER) | payer OTHER ==
--- NOTE | 2018-09-03 17:46 | PDOC ---
History of Present Illness - General Chief Complaint: Syncope/Near Syncope Stated Complaint: SYNCOPE, ANXIETY Time Seen by Provider: 09/03/18 17:46 Past History - Past Medical History Allergies/Adverse Reactions: Allergies Allergy/AdvReac Type Severity Reaction Status Date / Time No Known Drug Allergies Allergy Verified 09/03/18 17:42 estrella Allergy "itchy and Verified 09/03/18 17:42 face becomes red,coughing" Home Medications: Ambulatory Orders Etonogestrel [Nexplanon] 68 mg SQ ASDIR 09/03/18 Asthma: Yes (last attack-4yrs ago) Cancer: No Cardiac Disorders: No CVA: No COPD: No CHF: No Dementia: No Diabetes: No GI Disorders: No Disorders: No HTN: No Hypercholesterolemia: No Liver Disease: No Seizures: No Thyroid Disease: No - Surgical History Abdominal Surgery: Yes - Reproductive History (#): 3 Para: 1 Therapeutic (s) & number: No Spontaneous : 1 - Immunization History Immunization Up to Date: Yes - Suicide/Smoking/Psychosocial Hx Smoking Status: No Smoking History: Never smoked Have you smoked in the past 12 months: No Number of Cigarettes Smoked Daily: 0 Hx Alcohol Use: Yes (socially) Drug/Substance Use Hx: No Substance Use Type: Alcohol Hx Substance Use Treatment: No *DC/Admit/Observation/Transfer - Discharge Dispostion Condition at time of disposition: Stable - Referrals Referrals: Kanchan Pizarro [Primary Care Provider] - - Patient Instructions - Post Discharge Activity
[2018-09-03 17:59] VITALS: BMI 42.9
[2018-09-03] MEDS ORDERED: SODIUM CHLORIDE 0.9% 500 ML INFUS.BAG IV ONE (17:59)
--- NOTE | 2018-09-03 18:30 | PDOC ---
Documentation entered by Lang Sanchez SCRIBE, acting as scribe for Alexandrea Karimi MD. Alexandrea Karimi MD: This documentation has been prepared by the Daniel whitman Nirvannie, SCRIBE, under my direction and personally reviewed by me in its entirety. I confirm that the documentation accurately reflects all work, treatment, procedures, and medical decision making performed by me. History of Present Illness - General Chief Complaint: Syncope/Near Syncope Stated Complaint: SYNCOPE, ANXIETY Time Seen by Provider: 09/03/18 17:46 History Source: Patient Exam Limitations: No Limitations - History of Present Illness Initial Comments: 09/03/18 18:20 The patient is a 23 year old female, with a significant past medical history of anxiety, who presents to the emergency department s/p witnessed (by strangers) episode of syncope. As per patient, she was walking at which time she became anxious thus, syncopizing. She is unaware if she hit her head at the time but, notes upon waking up she had a momentary episode in which she could not speak secondary to hyperventilating. She notes the ability to ambulate without assistance s/p syncope. She endorses previous anxiety attacks, however, denies previous episodes of syncope. While in the ED, patient has no current complaints. She denies chest pain or shortness of breath. She denies recent fevers, chills, headache or dizziness. She denies recent nausea, vomiting, diarrhea or constipation. She denies recent dysuria, frequency, urgency or hematuria. Allergies: Phyllis Social history: Social alcohol usage. Nonsmoker. Denies recreational drug use. Primary Care Physician: Dr. Pizarro Past History - Past Medical History Allergies/Adverse Reactions: Allergies Allergy/AdvReac Type Severity Reaction Status Date / Time No Known Drug Allergies Allergy Verified 09/03/18 17:42 phyllis Allergy "itchy and Verified 09/03/18 17:42 face becomes red,coughing" Home Medications: Ambulatory Orders Etonogestrel [Nexplanon] 68 mg SQ ASDIR 09/03/18 Asthma: Yes (last attack-4yrs ago) Cancer: No Cardiac Disorders: No CVA: No COPD: No CHF: No Dementia: No Diabetes: No GI Disorders: No Disorders: No HTN: No Hypercholesterolemia: No Liver Disease: No Psychiatric Problems: Yes (anxiety d/o) Seizures: No Thyroid Disease: No - Surgical History Abdominal Surgery: Yes - Reproductive History (#): 3 Para: 1 Therapeutic (s) & number: No Spontaneous : 1 - Immunization History Immunization Up to Date: Yes - Suicide/Smoking/Psychosocial Hx Smoking Status: No Smoking History: Never smoked Have you smoked in the past 12 months: No Number of Cigarettes Smoked Daily: 0 Information on smoking cessation initiated: No Hx Alcohol Use: Yes (socially) Drug/Substance Use Hx: No Substance Use Type: Alcohol Hx Substance Use Treatment: No Review of Systems - Review of Systems Able to Perform ROS?: Yes Comments:: 09/03/18 18:20 GENERAL/CONSTITUTIONAL: No fever or chills. No weakness. HEAD, EYES, EARS, NOSE AND THROAT: No change in vision. No ear pain or discharge. No sore throat. CARDIOVASCULAR: No chest pain or shortness of breath. RESPIRATORY: No cough, wheezing, or hemoptysis. GASTROINTESTINAL: No nausea, vomiting, diarrhea or constipation. GENITOURINARY: No dysuria, frequency, or change in urination. MUSCULOSKELETAL: No joint or muscle swelling or pain. No neck or back pain. SKIN: No rash NEUROLOGIC: +loss of consciousness. No headache, vertigo,or change in strength/ sensation. ENDOCRINE: No increased thirst. No abnormal weight change. HEMATOLOGIC/LYMPHATIC: No anemia, easy bleeding, or history of blood clots. ALLERGIC/IMMUNOLOGIC: No hives or skin allergy. All Other Systems: Reviewed and Negative *Physical Exam - Vital Signs Last Vital Signs Temp Pulse Resp BP Pulse Ox 98.4 F 91 H 18 131/51 L 98 09/03/18 17:40 09/03/18 17:40 09/03/18 17:40 09/03/18 17:40 09/03/18 17:40 - Physical Exam Comments: 09/03/18 18:21 GENERAL: Awake, alert, and fully oriented, in no acute distress HEAD: No signs of trauma EYES: PERRLA, EOMI, sclera anicteric, conjunctiva clear ENT: Auricles normal inspection, hearing grossly normal, nares patent, oropharynx clear without exudates. Moist mucosa NECK: Normal ROM, supple, no lymphadenopathy, JVD, or masses LUNGS: Breath sounds equal, clear to auscultation bilaterally. No wheezes, and no crackles HEART: Regular rate and rhythm, normal S1 and S2, no murmurs, rubs or gallops ABDOMEN: Soft, nontender, normoactive bowel sounds. No guarding, no rebound. No masses EXTREMITIES: Normal range of motion, no edema. No clubbing or cyanosis. No cords, erythema, or tenderness NEUROLOGICAL: Cranial nerves II through XII grossly intact. Normal speech, normal gait SKIN: Warm, Dry, normal turgor, no rashes or lesions noted. ED Treatment Course - LABORATORY CBC & Chemistry Diagram: 09/03/18 18:30 09/03/18 18:30 - Medications Given in the ED: ED Medications Discontinued Medications Generic Name Dose Route Start Last Admin Trade Name Freq PRN Reason Stop Dose Admin Sodium Chloride 1,000 ml 09/03/18 17:59 09/03/18 18:10 Normal Saline - IV 09/03/18 18:00 1,000 ml ONCE ONE Administration Medical Decision Making - Medical Decision Making 09/03/18 18:29 Pt presents to the ED complaining of syncope today during what seems to have been an episode of hyperventilation. Will check U preg to rule out ectoic. EKG shows no evidence of arrhythmia. Will check labs to rule out severe anemia , likely discharge home if negative. *DC/Admit/Observation/Transfer Diagnosis at time of Disposition: Anxiety, Vasovagal syncope - Discharge Dispostion Disposition: HOME Condition at time of disposition: Stable - Referrals Referrals: Kanchan Pizarro [Primary Care Provider] - 3 days - Patient Instructions Printed Discharge Instructions: DI for Syncope in Adults (Fainting) Additional Instructions: rest;drink plenty of fluids keep in cool environment/avoid strenuous activity during extreme heat followup with your doctor within 3-4 days return to ER if you have persistent lightheadedness/chest pain/palpitations - Post Discharge Activity
[2018-09-03 18:55] LABS: BASO % 0.7 % (0-2.0); EOS % 3.7 % (0-4.5); HEMATOCRIT 37.1 % (32.4-45.2); HEMOGLOBIN 11.8 GM/dl (10.7-15.3); LYMPH % 21.7 % (8-40); MCH 26.6 pg (25.7-33.7); MCHC 31.8 g/dl (32.0-36.0); MEAN CELL VOLUME 83.8 fl (80-96); MEAN PLT VOLUME 10.9 fl (7.5-11.1); MONO % 5.7 % (3.8-10.2); NEUT % 68.2 % (42.8-82.8); PLATELET COUNT 265 K/MM3 (134-434); RBC 4.43 M/mm3 (3.60-5.2); RDW 14.7 % (11.6-15.6); WHITE BLOOD COUNT 9.2 K/mm3 (4.0-10.8)
[2018-09-03 19:04] LABS: ALBUMIN 3.6 g/dl (3.4-5.0); BILIRUBIN,TOTAL 0.3 mg/dl (0.2-1); CALCIUM 9.2 mg/dl (8.5-10); CREATININE 0.7 mg/dl (0.55-1.3); POTASSIUM 3.8 mmol/L (3.5-5.1)
[2018-09-03] MEDS ORDERED: IBUPROFEN 600 MG TABLET (FP) PO ONE ×2 (19:28→19:32)
--- NOTE | 2018-09-03 19:30 | PDOC ---
*Physical Exam - Vital Signs Last Vital Signs Temp Pulse Resp BP Pulse Ox 98.4 F 91 H 18 131/51 L 98 09/03/18 17:40 09/03/18 17:40 09/03/18 17:40 09/03/18 17:40 09/03/18 17:40 ED Treatment Course - LABORATORY CBC & Chemistry Diagram: 09/03/18 18:30 09/03/18 18:30 - ADDITIONAL ORDERS Additional order review: Laboratory Results 09/03/18 09/03/18 18:30 18:30 Sodium 135 L Potassium 3.8 Chloride 106 Carbon Dioxide 22 Anion Gap 7 L BUN 12.0 Creatinine 0.7 Est GFR (CKD-EPI)AfAm 140.55 Est GFR (CKD-EPI)NonAf 121.27 Random Glucose 106 Calcium 9.2 Total Bilirubin 0.3 AST 18 ALT 12 L Alkaline Phosphatase 57 Total Protein 7.0 Albumin 3.6 Urine HCG, Qual Negative 09/03/18 18:30 RBC 4.43 MCV 83.8 MCHC 31.8 L RDW 14.7 MPV 10.9 Neutrophils % 68.2 Lymphocytes % 21.7 Monocytes % 5.7 Eosinophils % 3.7 Basophils % 0.7 - Medications Given in the ED: ED Medications Discontinued Medications Generic Name Dose Route Start Last Admin Trade Name Freq PRN Reason Stop Dose Admin Sodium Chloride 1,000 ml 09/03/18 17:59 09/03/18 18:10 Normal Saline - IV 09/03/18 18:00 1,000 ml ONCE ONE Administration Progress Note - Progress Note Progress Note: Care of this patient received from . Chemistry profile laboratory evaluation is essentially normal. Results discussed with the patient. Patient will be discharged with instructions to maintain hydration, especially in hot humid weather. She should avoid prolonged strenuous exercise outside during high heat/humidity conditions. She will follow-up with her general medical doctor within the next 3-4 days and return to the emergency room if she has persistent lightheadedness/weakness. *DC/Admit/Observation/Transfer Diagnosis at time of Disposition: Anxiety, Vasovagal syncope - Discharge Dispostion Disposition: HOME Condition at time of disposition: Stable - Referrals Referrals: Kanchan Pizarro [Primary Care Provider] - 3 days - Patient Instructions Printed Discharge Instructions: DI for Syncope in Adults (Fainting) Additional Instructions: rest;drink plenty of fluids keep in cool environment/avoid strenuous activity during extreme heat followup with your doctor within 3-4 days return to ER if you have persistent lightheadedness/chest pain/palpitations - Post Discharge Activity
[2018-09-03 19:41] VITALS: BP 118/70; PULSE 76; TEMP 97.8
--- NOTE | 2018-09-03 23:55 | EKG ---
Test Reason : Blood Pressure : / mmHG Vent. Rate : 074 BPM Atrial Rate : 074 BPM P-R Int : 152 ms QRS Dur : 094 ms QT Int : 384 ms P-R-T Axes : 049 060 028 degrees QTc Int : 426 ms NORMAL SINUS RHYTHM NORMAL ECG WHEN COMPARED WITH ECG OF 29-MAR-2018 18:19, NO SIGNIFICANT CHANGE WAS FOUND Confirmed by BERRY TAM MD ([id number]) on 09/03/2018 11:54:52 PM Referred By: Confirmed By:BERRY TAM MD
== END 2018-09-03 19:41 | disposition home or self-care (01) ==
LOC: FER 17:40
PROC: 3E0337Z Introduction of Electrolytic and Water Balance Substance into Peripheral Vein, Percutaneous Approach (ICD-10-PCS; principal; 2018-09-03)
DX: R55 Syncope and collapse (principal); F41.9 Anxiety disorder, unspecified
CPT/HCPCS: 36415; 80053; 84703; 85025; 93005; 99284-25

== ENCOUNTER 2020-07-04 15:20 | Emergency (ER) | payer OTHER ==
[2020-07-04 15:30] VITALS: BP 124/82; PULSE 90; TEMP 98.3; BMI 44.4
[2020-07-04] MEDS ORDERED: IBUPROFEN 600 MG TABLET (FP) PO ONE ×2 (15:52→15:54)
[2020-07-04 16:00] LABS: HCG,QUALITATIVE URINE Negative
== END 2020-07-04 17:45 | disposition home or self-care (01) ==
LOC: FER 15:20
DX: N83.202 Unspecified ovarian cyst, left side (principal)
CPT/HCPCS: 76830-TC; 81003; 81015; 84703; 87086; 99284-25

== ENCOUNTER 2020-08-10 12:15 | Emergency (ER) | payer OTHER ==
[2020-08-10 12:28] VITALS: BP 135/84; PULSE 80; TEMP 99.7; BMI 46.7
[2020-08-10 12:56] LABS: HCG,QUALITATIVE URINE Positive
[2020-08-10 13:03] LABS: EPITHELIAL CELLS FEW /hpf
[2020-08-10 13:25] LABS: BASO % 1.4 % (0-2.0); EOS % 2.9 % (0-4.5); HEMATOCRIT 37.4 % (32.4-45.2); HEMOGLOBIN 12.6 GM/dl (10.7-15.3); LYMPH % 22.1 % (8-40); MCH 28.2 pg (25.7-33.7); MCHC 33.6 g/dl (32.0-36.0); MEAN PLT VOLUME 9.6 fl (7.5-11.1); MONO % 7.5 % (3.8-10.2); NEUT % 66.1 % (42.8-82.8); PLATELET COUNT 267 10^3/uL (134-434); RBC 4.46 M/mm3 (3.60-5.2); RDW 15.1 % (11.6-15.6); WHITE BLOOD COUNT 8.4 K/mm3 (4.0-10.8)
[2020-08-10 13:50] LABS: ALBUMIN 3.6 g/dl (3.4-5.0); BILIRUBIN,TOTAL 0.5 mg/dl (0.2-1); CALCIUM 8.8 mg/dl (8.5-10); CREATININE 0.7 mg/dl (0.55-1.3); TOT PROT 7.4 g/dl (6.4-8.2)
== END 2020-08-10 15:52 | disposition home or self-care (01) ==
LOC: FER 12:15
DX: O36.80X0 Pregnancy with inconclusive fetal viability, not applicable or unspecified (principal)
CPT/HCPCS: 36415; 76817-TC; 80053; 81003; 81015; 84702; 84703; 85025; 86850; 86900; 86901; 87086; 99284-25

== ENCOUNTER 2020-08-12 12:36 | Emergency (ER) | payer OTHER ==
[2020-08-12 12:54] VITALS: BP 117/75; PULSE 92; TEMP 99.2; BMI 46.0
== END 2020-08-12 14:48 | disposition home or self-care (01) ==
LOC: JERFT 12:36 → JER 12:36 → JERFT 14:48
DX: Z30.2 Encounter for sterilization (principal); Z3A.01 Less than 8 weeks gestation of pregnancy
CPT/HCPCS: 36415; 84702; 99283-25

== ENCOUNTER 2020-10-16 16:16 | Emergency (ER) | payer OTHER ==
[2020-10-16 16:40] VITALS: BP 116/60; PULSE 80; TEMP 99.2; BMI 48.5
[2020-10-16] MEDS ORDERED: SODIUM CHLORIDE 0.9% 1000 ML INFUS.BAG IV ONE (17:01)
[2020-10-16] MEDS ORDERED: ONDANSETRON 4 MG/2 ML VIAL IVPUSH ONE (17:24)
[2020-10-16] MEDS ORDERED: ONDANSETRON 4 MG/2 ML VIAL ONE (17:31)
[2020-10-16 17:37] LABS: BASO % 0.6 % (0-2.0); HEMATOCRIT 37.9 % (32.4-45.2); HEMOGLOBIN 12.9 GM/dl (10.7-15.3); LYMPH % 14.3 % (8-40); MCH 29.8 pg (25.7-33.7); MCHC 34.2 g/dl (32.0-36.0); MEAN CELL VOLUME 87.4 fl (80-96); MONO % 7.6 % (3.8-10.2); NEUT % 75.5 % (42.8-82.8); PLATELET COUNT 237 10^3/uL (134-434); RBC 4.33 M/mm3 (3.60-5.2); RDW 15.1 % (11.6-15.6); WHITE BLOOD COUNT 11.7 K/mm3 (4.0-10.8)
[2020-10-16 17:52] LABS: ALBUMIN 3.2 g/dl (3.4-5.0); BILIRUBIN,TOTAL 0.2 mg/dl (0.2-1); CREATININE 0.6 mg/dl (0.55-1.3); TOT PROT 7.1 g/dl (6.4-8.2)
== END 2020-10-16 19:24 | disposition home or self-care (01) ==
LOC: FER 16:16
PROC: 3E033GC Introduction of Other Therapeutic Substance into Peripheral Vein, Percutaneous Approach (ICD-10-PCS; principal; 2020-10-16)
DX: O26.892 Other specified pregnancy related conditions, second trimester (principal); M54.5 Low back pain; R10.9 Unspecified abdominal pain
CPT/HCPCS: 36415; 76857; 80053; 81003; 81015; 83690; 85025; 87086; 99284-25; C9803; U0003; U0005

== ENCOUNTER 2021-04-05 21:54 | Emergency (ER) | payer OTHER ==
[2021-04-05 22:05] VITALS: TEMP 99.3; BMI 51.7
[2021-04-05 22:35] VITALS: BP 136/83; PULSE 55
[2021-04-05 23:09] LABS: ALBUMIN 2.8 g/dl (3.4-5.0); BILIRUBIN,TOTAL 0.4 mg/dl (0.2-1); CREATININE 0.9 mg/dl (0.55-1.3); TOT PROT 6.2 g/dl (6.4-8.2)
[2021-04-05] MEDS ORDERED: ACETAMINOPHEN 325 MG TABLET (FP) PO ONE (23:18)
[2021-04-05 23:27] LABS: BASO % 0.5 % (0-2.0); EOS % 3.6 % (0-4.5); HEMATOCRIT 29.3 % (32.4-45.2); HEMOGLOBIN 9.5 GM/dL (10.7-15.3); LYMPH % 24.4 % (8-40); MCH 27.4 pg (25.7-33.7); MCHC 32.6 g/dl (32.0-36.0); MEAN CELL VOLUME 84.3 fl (80-96); MEAN PLT VOLUME 9.6 fl (7.5-11.1); MONO % 9.8 % (3.8-10.2); NEUT % 61.7 % (42.8-82.8); PLATELET COUNT 259 10^3/uL (134-434); RBC 3.48 M/mm3 (3.60-5.2); RDW 15.2 % (11.6-15.6); WHITE BLOOD COUNT 6.8 K/mm3 (4.0-10.0)
[2021-04-05] MEDS ORDERED: ACETAMINOPHEN 325 MG TABLET (FP) ONE (23:30)
[2021-04-06] LABS: EPITHELIAL CELLS FEW /hpf
== END 2021-04-05 23:51 | disposition home or self-care (01) ==
LOC: FER 21:54
DX: O13.9 Gestational [pregnancy-induced] hypertension without significant proteinuria, unspecified trimester (principal)
CPT/HCPCS: 36415; 80053; 81003; 81015; 85025; 99283-25

== ENCOUNTER 2021-11-24 18:40 | Emergency (ER) | payer OTHER ==
[2021-11-24 19:52] VITALS: PULSE 72; RESP 18; TEMP 98.6; BMI 49.7
[2021-11-24] MEDS ORDERED: SODIUM CHLORIDE 1,000 ML IV STA (20:07)
[2021-11-24] MEDS ORDERED: FAMOTIDINE 20 MG/50 ML IVPB 20 MG/50 ML MG IVPB ONE ×2 (20:08→20:14)
[2021-11-24 21:43] LABS: HEMATOCRIT 35.2 % (32.4-45.2); HEMOGLOBIN 12.1 G/dL (10.7-15.3); MCH 27.4 pg (25.7-33.7); MCHC 34.2 g/dl (32.0-36.0); MEAN CELL VOLUME 80.1 fl (80-96); PLATELET COUNT 311.6 10^3/uL (134-434); RBC 4.39 10^6/uL (3.60-5.2); RDW 16.3 % (11.6-15.6); WHITE BLOOD COUNT 7.4 10^3/uL (4.0-10.8)
[2021-11-24 21:52] LABS: ALBUMIN 3.7 g/dl (3.4-5.0); BILIRUBIN,TOTAL 0.4 mg/dl (0.2-1); CALCIUM 9.3 mg/dl (8.5-10); CREATININE 0.8 mg/dl (0.55-1.3); TOT PROT 7.4 g/dl (6.4-8.2)
[2021-11-24 22:02] LABS: PLATELET ESTIMATE ADEQUATE
[2021-11-24] MEDS ORDERED: ACETAMINOPHEN 500 MG TABLET (FP) ONE (22:49)
[2021-11-24 23:33] VITALS: BP 121/82
== END 2021-11-24 23:36 | disposition home or self-care (01) ==
LOC: FER 18:40
PROC: 3E033GC Introduction of Other Therapeutic Substance into Peripheral Vein, Percutaneous Approach (ICD-10-PCS; principal; 2021-11-24)
PROC: 3E0337Z Introduction of Electrolytic and Water Balance Substance into Peripheral Vein, Percutaneous Approach (ICD-10-PCS; 2021-11-24)
DX: K52.9 Noninfective gastroenteritis and colitis, unspecified (principal)
CPT/HCPCS: 36415; 80053; 83690; 85027; 99284-25

== ENCOUNTER 2022-06-29 12:12 | Emergency (ER) | payer OTHER ==
[2022-06-29 12:29] VITALS: BP 118/70; PULSE 83; RESP 16; TEMP 97.9; BMI 42.1
[2022-06-29] MEDS ORDERED: ACETAMINOPHEN 325 MG TABLET (FP) PO ONE (12:38)
[2022-06-29] MEDS ORDERED: IBUPROFEN 400 MG TABLET (FP) PO ONE (12:38)
[2022-06-29] MEDS ORDERED: LIDOCAINE 5% TOPICAL PATCH TP ONE (12:39)
[2022-06-29] MEDS ORDERED: ACETAMINOPHEN 500 MG TABLET (FP) ONE (12:47)
[2022-06-29] MEDS ORDERED: LIDOCAINE 5% TOPICAL PATCH ONE (12:47)
[2022-06-29] MEDS ORDERED: IBUPROFEN 600 MG TABLET (FP) PO ONE (12:47)
[2022-06-29 13:30] LABS: HCG,QUALITATIVE URINE Negative
[2022-06-29 13:51] LABS: EPITHELIAL CELLS FEW /hpf
[2022-06-29] MEDS ORDERED: LIDOCAINE PATCH REMOVAL MC SCH (22:00)
== END 2022-06-29 14:58 | disposition home or self-care (01) ==
LOC: FER 12:12
DX: R10.31 Right lower quadrant pain (principal)
CPT/HCPCS: 76830-TC; 81003; 81015; 84703; 99284-25